=== PATIENT | female | born 1935 | race Caucasian/White ===

== ENCOUNTER 2022-08-11 17:27 | Inpatient (IN) ==
[2022-08-11] MEDS ORDERED: MoRPHine SULFATE 2 MG/ML CARP IV STA (17:46)
[2022-08-11] MEDS ORDERED: ONDANSETRON INJ 2 MG/ML 2 ML VIAL IV STA (18:07)
[2022-08-11 18:14] LABS: Basophils # (auto) 0.03 K/uL (0-0.2); Basophils % (auto) 0.4 %; Eosinophils # (auto) 0.01 K/uL (0-0.50); Eosinophils % (auto) 0.1 %; Hemoglobin 12.4 g/dl (12.0-16.0); Immature Granulocytes # (auto) 0.01 K/uL (0.00-0.02); Immature Granulocytes % (auto) 0.1 %; Lymphocytes # (auto) 1.85 K/uL (1.2-3.4); Lymphocytes % (auto) 22.9 %; Mean Corpuscular Hemoglobin 26.6 pg (25.0-34.0); Mean Corpuscular Hgb Conc 32.6 g/dL (32.0-36.0); Mean Corpuscular Volume 81.4 fL (80.0-100.0); Monocytes # (auto) 0.61 K/uL (0.24-0.82); Monocytes % (auto) 7.5 %; Neutrophils # (auto) 5.58 K/uL (1.4-6.5); Platelet Count 277 K/uL (130-400); RDW Coefficient of Variation 19.6 % (11.5-14.5); RDW Standard Deviation 57.8 fL (36.4-46.3); Red Blood Count 4.67 M/uL (3.93-5.22); White Blood Count 8.09 K/ul (4.8-10.8)
[2022-08-11 18:29] LABS: Partial Thromboplastin Ratio 1.1; Partial Thromboplastin Time 30.5 Seconds (21.0-31.0); Prothrombin Time 10.4 Seconds (9.0-12.0)
[2022-08-11 18:36] LABS: Albumin Globulin Ratio 1.1 (0.9-2); Albumin Level 3.6 gm/dl (3.4-5.0); BUN Creatinine Ratio 27.3 (10-20); Bilirubin,Total 0.3 mg/dl (0.2-1.0); Calcium 8.2 mg/dl (8.5-10.1); Creatinine Clr Calc Pharmacy 57.4 ml/min; Est GFR (African American) 96.4 ml/min; Est GFR (Non-African American) 83.2 ml/min; Globulin 3.2 gm/dl (2.5-4.0); Potassium 3.7 mmol/L (3.5-5.1); Total Protein 6.8 gm/dl (6.0-8.3)
--- NOTE | 2022-08-11 18:39 | XRay Report ---
LEFT TIBIA AND FIBULA 2 VIEWS CLINICAL HISTORY: Fall with left leg injury. FINDINGS: AP and lateral views of the left tibia and fibula are obtained. No prior studies are availa ble for comparison at the time of dictation. The skeletal structures are osteopenic. There is no radi ographic evidence of left tibial fibular fracture. Arthritic change is seen in the knee with a large knee joint effusion. The ankle mortise appears intact. An os trigonum is incidentally noted. The over lying soft tissues are normal as visualized. Atherosclerotic calcification is seen in the regional ar teries. IMPRESSION: 1. There is no radiographic evidence of left tibial or fibular fracture. 2. Large knee joint effusion. Electronically signed by: Jasvir Ruggiero M.D. 08/11/2022 6:38 PM
--- NOTE | 2022-08-11 18:39 | XRay Report ---
SINGLE VIEW PELVIS; 2 VIEWS RIGHT FEMUR CLINICAL HISTORY: Fall with right leg pain. FINDINGS: An AP view of the pelvis with AP and crosstable lateral views of the left femur are obtaine d. No prior studies are available for comparison at the time of dictation. The skeletal structures ar e heterogeneously osteopenic. There is an impacted subcapital fracture of the left proximal femur. Ov erlying soft tissue edema is noted. The distal left femur appears intact. No acute fracture is seen I nvolving the right hip or the bony pelvis. There is chronic deformity of the right proximal femur wit h 3 intertrochanteric cannulated cortical lag screws in place. Moderate to advanced arthritic change and joint space narrowing is seen in the hips. Sclerotic changes noted in the sacroiliac joints. Adva nced arthritic changes seen in the left knee. There is a large left knee joint effusion. Advanced ath erosclerotic calcification is seen in the femoral arteries. A pessary device projects over the pelvis . IMPRESSION: 1. Impacted subcapital fracture of the left proximal femur. 2. No additional acute fracture is seen involving the bony pelvis or the right hip. 3. Osteopenia with chronic changes as above. 4. 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 Electronically signed by: Jasvir Ruggiero M.D. 08/11/2022 6:37 PM
--- NOTE | 2022-08-11 18:55 | CT Scan Report ---
CT SCAN OF THE BRAIN WITHOUT IV CONTRAST CLINICAL HISTORY: Fall. Head injury. COMPARISON STUDY: No priors. TECHNIQUE: Unenhanced axial CT scan of the brain is performed from the vertex to the skull base. A do se lowering technique was utilized adhering to the principles of ALARA. 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 There is no hemorrhage, mass effect, or evidence of acute territorial ischemia by CT criteria. Mineralization is noted in the basal ganglia. [place]-white matter differentiation is preserved. No extra-axial fluid collection is seen. Ventricles, sulci, cisterns: Prominent secondary to involutional change. Intracranial vasculature: There is atherosclerotic calcification of the cavernous carotid and vertebr al arteries. Calvarium: The skeletal structures are osteopenic. No depressed calvarial fracture is seen. Sinuses and mastoids: There is trace fluid within the sphenoid sinuses. The remaining paranasal sinus es are clear. The mastoid air cells are well pneumatized. Orbits: The bony orbits are grossly intact. There are bilateral ocular lens implants. IMPRESSION: There is no hemorrhage, mass effect, or evidence of acute territorial ischemia by CT sofya ramirez. ACT 112: Negative or not required by law. Electronically signed by: Jasvir Ruggiero M.D. 08/11/2022 6:53 PM
--- NOTE | 2022-08-11 19:03 | CT Scan Report ---
CT SCAN OF THE CERVICAL SPINE CLINICAL HISTORY: Fall. Head injury. COMPARISON STUDY: No priors. TECHNIQUE: CT scan of the cervical spine is performed from the skull base to the upper thoracic spine . Images are reviewed in the axial, sagittal, and coronal planes. IV contrast was not administered fo r this examination. A dose lowering technique was utilized adhering to the principles of ALARA. Ther e FINDINGS: Skeletal structures: The skeletal structures are osteopenia. There is no evidence of fracture or subl uxation involving the cervical spine. Vertebral body height is maintained. There is minimal anteroli sthesis at C5-C6 and C7-T1. Alignment is otherwise preserved. Small anterior osteophytes are seen thr oughout. The odontoid process and lateral masses are intact. The atlantoaxial articulation is preserv ed noting productive degenerative change. The spinous processes appear intact. There are mild and age indeterminate superior endplate compression deformities of T2 and T3. Intervertebral discs: There is severe disc space narrowing at C6-C7 with bony fusion at this level. M oderate disc space narrowing is seen at C3-C4, C4-C5, C5-C6. Central canal: Posterior disc osteophyte complexes are seen also at all cervical levels between C3-C4 and C6-C7. This likely contributes to multilevel acquired compromise of the central canal. Soft tissues: The prevertebral and paraspinous soft tissues are within normal limits. There is athero sclerotic calcification of the carotid bulbs. The thyroid gland is enlarged and heterogeneous. Calvarium: The visualized calvarium at the skull base appears intact. Brain parenchyma: Partially visualized brain parenchyma at the skull base is within normal limits. Sinuses and mastoids: Trace fluid is noted in the sphenoid sinuses. Trace mucosal thickening is noted in the left maxillary antrum. The mastoid air cells are well pneumatized. Lung apices: Clear as visualized. IMPRESSION: 1. There is no evidence of fracture or subluxation involving the cervical spine. 2. Osteopenia and spondylotic changes above. 3. Mild age indeterminate superior endplate compression deformities of T2 and T3 are likely chronic. Correlate for point tenderness. ACT 112: Negative or not required by law. Electronically signed by: Jasvir Ruggiero M.D. 08/11/2022 7:00 PM
--- NOTE | 2022-08-11 19:08 | Emergency Department Note ---
History of Present Illness General Chief complaint: Fall Stated complaint: fall, knee pain Time Seen by Provider: 08/11/22 17:41 History of Present Illness Maximum Pain Intensity: 10 This is an 87-year-old female presenting to the emergency department via EMS from home for evaluation of left leg pain. The patient evidently got up around 2 AM today to use the bathroom, fell, and injured herself. She is primarily having pain in her left knee as well as the right side of her head. The patient rates her overall discomfort a 10/10. She is not having significant chest pain, chest tightness, shortness of breath, or abdominal pain. She has not been able to ambulate since the injury. She did have abrasion to the right side of the head but this is no longer bleeding. She is not on blood thinners. She does live with her daughter and son-in-law. Home Medications Medication Instructions Recorded Confirmed Type acetaminophen 500 mg tablet 1,000 mg PO DIRECTED PRN Pain 08/11/22 08/11/22 History (Tylenol Extra Strength) amlodipine 5 mg tablet 5 mg PO QAM 08/11/22 08/11/22 History levothyroxine 25 mcg tablet 25 mcg PO QAM 08/11/22 08/11/22 History linagliptin 5 mg tablet (Tradjenta) 5 mg PO QAM 08/11/22 08/11/22 History Allergies Allergy/AdvReac Type Severity Reaction Status Date / Time No Known Allergies Allergy Verified 08/11/22 19:26 Past Med/Surg History Medical History COVID-19 Diabetes Femur fracture, left Hyperlipidemia Hypertension Hypothyroidism Surgical History History of repair of right hip joint Family History Other Family history non-contributory Social History Smoking Status: Never smoker Hx Alcohol Use: Yes Alcohol type: hard liquor Hx Substance Use: No Preferred Language: Welsh Communication Ability: Effective Residential Property Manager Required: No Beliefs That Will Affect Care: None Current Living Situation: Family Current Living Situation Comment: Daughter and Daughter's Feels Safe at Home: Yes Safety Concerns: Feels Safe At This Time Assistive Devices: Glasses, Walker and Other Assistive Devices Comment: transport chair Review of Systems A total of 10 systems reviewed and were otherwise negative Physical Exam Vital Signs Vital Signs - 24 hr 08/11/22 17:36 08/11/22 18:28 Temperature 37.4 C Temperature Source Oral Pulse Rate 98 H Pulse Rate [Finger] 96 H Respiratory Rate 18 20 Blood Pressure 188/100 H Blood Pressure [Left Arm] 183/109 H Blood Pressure Mean 129 Blood Pressure Mean [Left Arm] 133 Pulse Oximetry 92 90 Oxygen Delivery Method Room Air Room Air Sepsis Recent Fever Within 48 Hours No Sepsis New/Unexplained Change in Mental Status No Sepsis Action Taken by Nursing No Action Required VITALS: Vitals are noted on the nurse's note and reviewed by myself. Vital signs stable. GENERAL: Elderly white female who appears uncomfortable with movement but is overall pleasant and cooperative. HEAD: There is a small right-sided scalp hematoma with superficial abrasion that is healing well. No nelson sign or raccoon eyes. NECK: Supple without nuchal rigidity. No lymphadenopathy. No thyromegaly. Cervical spine is nontender. HEART: Regular rate and rhythm LUNGS: Clear to auscultation bilaterally without wheezes, rales or rhonchi. No retractions or accessory muscle use. MUSCULOSKELETAL: Left leg is shortened and rotated. Maximum tenderness is primarily at the distal femur into the knee, however she is not able to internally and externally rotate at the hip. Neurovascular status appears intact distally. NEURO: Patient was alert and oriented to person place and time. CN II through XII grossly intact. GCS 15. Course Administered Medications Amlodipine Besylate (Amlodipine Besylate 5 Mg Tab) 5 mg PO QAM VÍCTOR Stop: 09/11/22 08:59 Last Admin: 08/12/22 08:51 Dose: 5 mg Documented By: MOI Dextrose/Sodium Chloride (D5w And 1/2nss) 1,000 mls @ 100 mls/hr IV .Q10H VÍCTOR Stop: 09/10/22 21:40 Last Admin: 08/12/22 08:50 Dose: 100 mls/hr Documented By: Infusion: 08/12/22 08:50 Dose: 0 mls/hr Documented By: Admin: 08/11/22 22:12 Dose: 100 mls/hr Documented By: Acetaminophen (Ofirmev) 1,000 mg in 100 mls @ 400 mls/hr IV Q8H PRN PRN Reason: Pain/Fever Stop: 08/14/22 21:40 Last Infusion: 08/12/22 09:28 Dose: 0 mls/hr Documented By: Admin: 08/12/22 08:51 Dose: 400 mls/hr Documented By: Infusion: 08/11/22 23:04 Dose: 0 mls/hr Documented By: Admin: 08/11/22 22:12 Dose: 400 mls/hr Documented By: Remdesivir 100 mg/ Sodium (Chloride) 250 mls @ 250 mls/hr IV Q24H [facility] Stop: 08/15/22 20:59 Last Admin: 08/12/22 20:53 Dose: 250 mls/hr Documented By: CATA Insulin Aspart (Insulin Aspart Per Unit) 0 units SC ACHS [facility] Stop: 09/11/22 17:44 Last Admin: 08/12/22 20:53 Dose: Not Given Documented By: Admin: 08/12/22 18:28 Dose: Not Given Documented By: MOI Levothyroxine Sodium (Levothyroxine Sodium 25 Mcg Tablet) 25 mcg PO DAILYBB [facility] Stop: 09/11/22 06:29 Last Admin: 08/12/22 09:29 Dose: 25 mcg Documented By: MOI Morphine Sulfate (Morphine Sulfate Ir 15 Mg Tab (Immediate Release)) 15 mg PO Q4H PRN PRN Reason: moderate-severe pain Stop: 08/25/22 21:40 Last Admin: 08/12/22 03:53 Dose: 15 mg Documented By: Ondansetron HCl (Ondansetron Inj 2 Mg/Ml 2 Ml Vial) 4 mg IV Q6H PRN PRN Reason: Nausea Stop: 09/10/22 21:40 Last Admin: 08/12/22 21:01 Dose: 4 mg Documented By: CATA Senna/Docusate Sodium (Docusate Sodium/Senna 50/8.6mg Tab) 2 tab PO HS [facility] Stop: 09/10/22 21:40 Last Admin: 08/12/22 20:53 Dose: 2 tab Documented By: Admin: 08/11/22 22:11 Dose: 2 tab Documented By: Discontinued Medications Remdesivir 200 mg/ Sodium (Chloride) 250 mls @ 125 mls/hr IV ONE STA; Protocol Stop: 08/11/22 23:15 Last Infusion: 08/12/22 00:34 Dose: 0 mls/hr Documented By: Admin: 08/11/22 22:12 Dose: 125 mls/hr Documented By: Potassium Chloride (K Stuart / Wtr) 10 meq in 100 mls @ 100 mls/hr IV Q1H VÍCTOR; Protocol Stop: 08/12/22 02:59 Last Infusion: 08/12/22 04:00 Dose: 0 mls/hr Documented By: Admin: 08/12/22 02:48 Dose: 100 mls/hr Documented By: Infusion: 08/12/22 02:27 Dose: 100 mls/hr Documented By: Admin: 08/12/22 01:27 Dose: 100 mls/hr Documented By: Magnesium Sulfate/Dextrose (Magnesium Sulfate / D5w) 1 gm in 100 mls @ 50 mls/hr IV ONE ONE Stop: 08/12/22 03:34 Last Infusion: 08/12/22 05:47 Dose: 0 mls/hr Documented By: Admin: 08/12/22 03:46 Dose: 50 mls/hr Documented By: Insulin Aspart (Insulin Aspart Per Unit) 0 units SC Q6 [facility]CTOR Stop: 09/11/22 00:00 Last Admin: 08/12/22 13:07 Dose: Not Given Documented By: Admin: 08/12/22 05:59 Dose: 1 units Documented By: Co-signed By: SHA Admin: 08/11/22 23:13 Dose: Not Given Documented By: Lidocaine HCl (Lidocaine 1% Local 20 Ml Vial) Confirm Administered Dose 20 ml .ROUTE .STK-MED ONE Stop: 08/12/22 09:05 Last Admin: 08/12/22 17:58 Dose: 20 ml Documented By: MOI Morphine Sulfate (Morphine Sulfate 2 Mg/Ml Carp) 2 mg IV NOW STA Stop: 08/11/22 17:47 Last Admin: 08/11/22 18:10 Dose: 2 mg Documented By: HAROON Morphine Sulfate (Morphine Sulfate Ir 15 Mg Tab (Immediate Release)) 15 mg PO NOW STA Stop: 08/11/22 20:43 Last Admin: 08/11/22 21:00 Dose: 15 mg Documented By: [id number] Morphine Sulfate (Morphine Sulfate 2 Mg/Ml Carp) 2 mg IV NOW STA Stop: 08/12/22 04:05 Last Admin: 08/12/22 04:16 Dose: 2 mg Documented By: Ondansetron HCl (Ondansetron Inj 2 Mg/Ml 2 Ml Vial) 4 mg IV NOW STA Stop: 08/11/22 18:08 Last Admin: 08/11/22 18:10 Dose: 4 mg Documented By: HAROON Medical Decision Making Differential Diagnosis Differential diagnosis includes, but is not limited to: Sprain, strain, fracture, dislocation, subluxation, contusion, and others Laboratory Data Result diagrams: 08/12/22 03:30 08/12/22 03:30 Lab Results 08/11/22 08/11/22 08/11/22 Range/Units 18:02 18:02 18:02 WBC 8.09 (4.8-10.8) K/ul RBC 4.67 (3.93-5.22) M/uL Hgb 12.4 (12.0-16.0) g/dl Hct 38.0 (34.1-44.9) % MCV 81.4 (80.0-100.0) fL MCH 26.6 (25.0-34.0) pg MCHC 32.6 (32.0-36.0) g/dL RDW Std Deviation 57.8 H (36.4-46.3) fL RDW Coeff of Rah 19.6 H (11.5-14.5) % Plt Count 277 (130-400) K/uL MPV 11.0 (9.4-12.3) fL Immature Gran % (Auto) 0.1 % Neut % (Auto) 69.0 % Lymph % (Auto) 22.9 % Trinity % (Auto) 7.5 % Eos % (Auto) 0.1 % Baso % (Auto) 0.4 % Neut # (Auto) 5.58 (1.4-6.5) K/uL Lymph # (Auto) 1.85 (1.2-3.4) K/uL Trinity # (Auto) 0.61 (0.24-0.82) K/uL Eos # (Auto) 0.01 (0-0.50) K/uL Baso # (Auto) 0.03 (0-0.2) K/uL Immature Gran # (Auto) 0.01 (0.00-0.02) K/uL PT 10.4 (9.0-12.0) Seconds INR 1.0 (0.9-1.1) APTT 30.5 (21.0-31.0) Seconds PTT Ratio 1.1 Sodium 136 (136-145) mmol/L Potassium 3.7 (3.5-5.1) mmol/L Chloride 104 (98-107) mmol/L Carbon Dioxide 24 (21-32) mmol/L Anion Gap 8 (3-11) BUN 15 (6-23) mg/dl Creatinine 0.55 L (0.6-1.2) mg/dl Est Cr Clr Drug Dosing 57.4 ml/min Est GFR ( Amer) 96.4 ml/min Est GFR (Non-Af Amer) 83.2 ml/min BUN/Creatinine Ratio 27.3 H (10-20) Glucose 83 (70-99(Fasting)) mg/dl Calcium 8.2 L (8.5-10.1) mg/dl Magnesium (1.7-2.4) mg/dl Total Bilirubin 0.3 (0.2-1.0) mg/dl AST 32 (13-39) U/L ALT 14 (7-52) U/L Alkaline Phosphatase 71 (34-104) U/L Total Protein 6.8 (6.0-8.3) gm/dl Albumin 3.6 (3.4-5.0) gm/dl Globulin 3.2 (2.5-4.0) gm/dl Albumin/Globulin Ratio 1.1 (0.9-2) SARS-CoV-2, RNA, NAAT (NEGATIVE) 08/11/22 08/11/22 Range/Units 18:02 19:02 WBC (4.8-10.8) K/ul RBC (3.93-5.22) M/uL Hgb (12.0-16.0) g/dl Hct (34.1-44.9) % MCV (80.0-100.0) fL MCH (25.0-34.0) pg MCHC (32.0-36.0) g/dL RDW Std Deviation (36.4-46.3) fL RDW Coeff of Rah (11.5-14.5) % Plt Count (130-400) K/uL MPV (9.4-12.3) fL Immature Gran % (Auto) % Neut % (Auto) % Lymph % (Auto) % Trinity % (Auto) % Eos % (Auto) % Baso % (Auto) % Neut # (Auto) (1.4-6.5) K/uL Lymph # (Auto) (1.2-3.4) K/uL Trinity # (Auto) (0.24-0.82) K/uL Eos # (Auto) (0-0.50) K/uL Baso # (Auto) (0-0.2) K/uL Immature Gran # (Auto) (0.00-0.02) K/uL PT (9.0-12.0) Seconds INR (0.9-1.1) APTT (21.0-31.0) Seconds PTT Ratio Sodium (136-145) mmol/L Potassium (3.5-5.1) mmol/L Chloride (98-107) mmol/L Carbon Dioxide (21-32) mmol/L Anion Gap (3-11) BUN (6-23) mg/dl Creatinine (0.6-1.2) mg/dl Est Cr Clr Drug Dosing ml/min Est GFR ( Amer) ml/min Est GFR (Non-Af Amer) ml/min BUN/Creatinine Ratio (10-20) Glucose (70-99(Fasting)) mg/dl Calcium (8.5-10.1) mg/dl Magnesium 1.9 (1.7-2.4) mg/dl Total Bilirubin (0.2-1.0) mg/dl AST (13-39) U/L ALT (7-52) U/L Alkaline Phosphatase (34-104) U/L Total Protein (6.0-8.3) gm/dl Albumin (3.4-5.0) gm/dl Globulin (2.5-4.0) gm/dl Albumin/Globulin Ratio (0.9-2) SARS-CoV-2, RNA, NAAT POSITIVE A* (NEGATIVE) Imaging Data Radiologist's Impression: Femur X-Ray 08/11/22 17:46 SINGLE VIEW PELVIS; 2 VIEWS RIGHT FEMUR CLINICAL HISTORY: Fall with right leg pain. FINDINGS: An AP view of the pelvis with AP and crosstable lateral views of the left femur are obtained. No prior studies are available for comparison at the time of dictation. The skeletal structures are heterogeneously osteopenic. There is an impacted subcapital fracture of the left proximal femur. Overlying soft tissue edema is noted. The distal left femur appears intact. No acute fracture is seen Involving the right hip or the bony pelvis. There is chronic deformity of the right proximal femur with 3 intertrochanteric cannulated cortical lag screws in place. Moderate to advanced arthritic change and joint space narrowing is seen in the hips. Sclerotic changes noted in the sacroiliac joints. Advanced arthritic changes seen in the left knee. There is a large left knee joint effusion. Advanced atherosclerotic calcification is seen in the femoral arteries. A pessary device projects over the pelvis. IMPRESSION: 1. Impacted subcapital fracture of the left proximal femur. 2. No additional acute fracture is seen involving the bony pelvis or the right hip. 3. Osteopenia with chronic changes as above. 4. 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 Electronically signed by: Jasvir Ruggiero M.D. 08/11/2022 6:37 PM Pelvis X-Ray 08/11/22 17:46 SINGLE VIEW PELVIS; 2 VIEWS RIGHT FEMUR CLINICAL HISTORY: Fall with right leg pain. FINDINGS: An AP view of the pelvis with AP and crosstable lateral views of the left femur are obtained. No prior studies are available for comparison at the time of dictation. The skeletal structures are heterogeneously osteopenic. There is an impacted subcapital fracture of the left proximal femur. Overlying soft tissue edema is noted. The distal left femur appears intact. No acute fracture is seen Involving the right hip or the bony pelvis. There is chronic deformity of the right proximal femur with 3 intertrochanteric cannulated cortical lag screws in place. Moderate to advanced arthritic change and joint space narrowing is seen in the hips. Sclerotic changes noted in the sacroiliac joints. Advanced arthritic changes seen in the left knee. There is a large left knee joint effusion. Advanced atherosclerotic calcification is seen in the femoral arteries. A pessary device projects over the pelvis. IMPRESSION: 1. Impacted subcapital fracture of the left proximal femur. 2. No additional acute fracture is seen involving the bony pelvis or the right hip. 3. Osteopenia with chronic changes as above. 4. 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 Electronically signed by: Jasvir Ruggiero M.D. 08/11/2022 6:37 PM Tibia/Fibula X-Ray 08/11/22 17:46 LEFT TIBIA AND FIBULA 2 VIEWS CLINICAL HISTORY: Fall with left leg injury. FINDINGS: AP and lateral views of the left tibia and fibula are obtained. No prior studies are available for comparison at the time of dictation. The skeletal structures are osteopenic. There is no radiographic evidence of left tibial fibular fracture. Arthritic change is seen in the knee with a large knee joint effusion. The ankle mortise appears intact. An os trigonum is incidentally noted. The overlying soft tissues are normal as visualized. Atherosclerotic calcification is seen in the regional arteries. IMPRESSION: 1. There is no radiographic evidence of left tibial or fibular fracture. 2. Large knee joint effusion. Electronically signed by: Jasvir Ruggiero M.D. 08/11/2022 6:[address] 08/11/22 18:15 CT SCAN OF THE CERVICAL SPINE CLINICAL HISTORY: Fall. Head injury. COMPARISON STUDY: No priors. TECHNIQUE: CT scan of the cervical spine is performed from the skull base to the upper thoracic spine. Images are reviewed in the axial, sagittal, and coronal planes. IV contrast was not administered for this examination. A dose lowering technique was utilized adhering to the principles of ALARA. There FINDINGS: Skeletal structures: The skeletal structures are osteopenia. There is no evidence of fracture or subluxation involving the cervical spine. Vertebral body height is maintained. There is minimal anterolisthesis at C5-C6 and C7-T1. Alignment is otherwise preserved. Small anterior osteophytes are seen throughout. The odontoid process and lateral masses are intact. The atlantoaxial articulation is preserved noting productive degenerative change. The spinous processes appear intact. There are mild and age indeterminate superior endplate compression deformities of T2 and T3. Intervertebral discs: There is severe disc space narrowing at C6-C7 with bony fusion at this level. Moderate disc space narrowing is seen at C3-C4, C4-C5, C5- C6. Central canal: Posterior disc osteophyte complexes are seen also at all cervical levels between C3-C4 and C6-C7. This likely contributes to multilevel acquired compromise of the central canal. Soft tissues: The prevertebral and paraspinous soft tissues are within normal limits. There is atherosclerotic calcification of the carotid bulbs. The thyroid gland is enlarged and heterogeneous. Calvarium: The visualized calvarium at the skull base appears intact. Brain parenchyma: Partially visualized brain parenchyma at the skull base is within normal limits. Sinuses and mastoids: Trace fluid is noted in the sphenoid sinuses. Trace mucosal thickening is noted in the left maxillary antrum. The mastoid air cells are well pneumatized. Lung apices: Clear as visualized. IMPRESSION: 1. There is no evidence of fracture or subluxation involving the cervical spine. 2. Osteopenia and spondylotic changes above. 3. Mild age indeterminate superior endplate compression deformities of T2 and T3 are likely chronic. Correlate for point tenderness. ACT 112: Negative or not required by law. Electronically signed by: Jasvir Ruggiero M.D. 08/11/2022 7:[address] 08/11/22 18:15 CT SCAN OF THE BRAIN WITHOUT IV CONTRAST CLINICAL HISTORY: Fall. Head injury. COMPARISON STUDY: No priors. TECHNIQUE: Unenhanced axial CT scan of the brain is performed from the vertex to the skull base. A dose lowering technique was utilized adhering to the princ iples of NIMA. CT DOSE: 971.97 mGy.cm FINDINGS: Brain parenchyma: There is age-related involutional change noting moderate to advanced subcortical and periventricular microangiopathic disease. There is no hemorrhage, mass effect, or evidence of acute territorial ischemia by CT criteria. Mineralization is noted in the basal ganglia. [place]-white matter differentiation is preserved. No extra-axial fluid collection is seen. Ventricles, sulci, cisterns: Prominent secondary to involutional change. Intracranial vasculature: There is atherosclerotic calcification of the cavernous carotid and vertebral arteries. Calvarium: The skeletal structures are osteopenic. No depressed calvarial fracture is seen. Sinuses and mastoids: There is trace fluid within the sphenoid sinuses. The remaining paranasal sinuses are clear. The mastoid air cells are well pneumatized. Orbits: The bony orbits are grossly intact. There are bilateral ocular lens implants. IMPRESSION: There is no hemorrhage, mass effect, or evidence of acute territorial ischemia by CT criteria. ACT 112: Negative or not required by law. Electronically signed by: Jasvir Ruggiero M.D. 08/11/2022 6:[address] 08/11/22 18:34 CT SCAN OF THE PELVIS WITHOUT IV CONTRAST CLINICAL HISTORY: Fall. Left hip pain. COMPARISON STUDY: Radiographs of the pelvis and left femur performed the same day 08/11/2022. TECHNIQUE: CT scan of the pelvis is performed from the pelvic inlet to the proximal femora. Images reviewed in the axial, sagittal, and coronal planes. IV contrast was not administered for this examination. A dose lowering technique was utilized adhering to the principles of ALARA. CT DOSE: 306.43 mGy.cm FINDINGS: The skeletal structures are heterogeneously osteopenic. There is impacted subcapital fracture of the left proximal femur with mild surrounding hemorrhage. No additional acute fracture is seen involving the right proximal femur or the bony pelvis. There is chronic posttraumatic deformity of the right proximal femur with 3 cannulated intertrochanteric cortical lag screws in place. No lytic or blastic lesion is seen. Moderate to advanced arthritic change and joint space narrowing is noted in the hips. There is degenerative sclerosis of the sacroiliac joints. There is generalized atrophy of the regional musculature. The bladder, uterus, and adnexa are normal as visualized. A pessary device is in place. No pelvic sidewall or inguinal adenopathy is seen. Advanced atherosclerotic calcification is noted in the iliac vessels. The imaged loops of bowel show no evidence of obstruction. There is advanced diverticulosis of the left colon without CT evidence of acute diverticulitis. No intraperitoneal free air or free fluid is seen in the pelvis. IMPRESSION: 1. Impacted subcapital fracture of the left proximal femur. 2. No additional acute fracture is seen involving the right hip or the bony pelvis. ACT 112: Negative or not required by law. Dictated: 08/11/2022 7:00 PM Transcribed: 08/11/2022 7:51 PM [facility] [id number] [email or web address] Electronically signed by: Jasvir Ruggiero M.D. 08/11/2022 8:16 PM [facility] Narrative Physical exam and history were performed. Nursing notes, EMR, and Medication List were personally reviewed. Patient appears to have fallen at home earlier today with pain in her left lower leg. Patient is not able to ambulate because of her symptoms. IV access was established and labs were obtained. X-rays were performed. Patient's blood work is as above and was reviewed. She does not have a significantly elevated blood cell count, gross anemia, bandemia, or significant electrolyte imbalance. Transaminases are not diagnostic. COVID swab was performed and POSITIVE. X-rays are concerning for fracture of the left hip. CT scans of the head, neck, and hip were performed, and are also concerning for fracture at the left hip. I did reach out to the on-call orthopedist, Dr. Siu, who was able to review the images. The case was also discussed with the on-call hospitalist who will admit the patient. Please see the hospitalist and orthopedic dictation for further patient course, plan, disposition. The chart was completed utilizing [employer] Speech Voice Recognition Software. Grammatical errors, random word insertions, pronoun errors, and incomplete sentences are an occasional consequence of this system due to software limitations, ambient noise, and hardware issues. Any formal questions or concerns about the content, text, or information contained within the body of this dictation should be directly addressed to the provider for clarification. . Impression & Plan Femur fracture, left, Fall, COVID-19 Discharge Plan Visit Data Chief Complaint: Fall Stated Complaint: fall, knee pain ED Provider: Skyler Westbrook ED Midlevel Provider: Ruslan Babcock Discharge Problem: Femur fracture, left, Fall, COVID-19 Patient Disposition: Admitted As Inpatient Discharge Instructions Interventions: ED Discharge Assessment Last Done: 08/11/22 21:27
--- NOTE | 2022-08-11 19:18 | History & Physical Report ---
Date of Service August 11, 2022 Assessment & Plan (1) Femur fracture, left: Plan: - Femur XR: Impacted subcapital fracture of the left proximal femur. Large left knee joint effusion. No other fractures. Right scalp laceration. - Bedrest. - NPO at midnight. - CXR and EKG for pre-op clearance ordered. - Type and screen ordered. - Ortho surgery consulted. - Tylenol, morphine, heating pad ordered for pain control. Cautious keerthi of opiates given concern for respiratory status with concomitant covid infection. (2) COVID-19: Plan: - Patient reports feeling "ill" for a couple days with no energy, lack of appetite, fever at home. Daughter states she has been eating well, had an issue with constipation this week but took a laxative and has otherwise been doing okay. Does not recall patient having a fever or complaining of illness. - Positive today in ED, not vaccinated, not really able to quantify when symptoms began. - Patient was mildly hypoxic prior to pain medication at 90-92%. No underlying COPD however lung disease. She is not tachypneic or dyspneic, not using accessory muscles. Will consult with ortho regarding remdesivir and dexamethasone. Hesitate to start on IV steroids due to risk of impaired healing. Renal function adequate for remdesivir. - Supportive care. Isolation precautions. - On 2 L NC. (3) Diabetes: Plan: - On Tradjenta at home, will hold during hospitalization. - Accu-Cheks AC at bedtime/Q6h as well n.p.o., SSI only without basal insulin. - Patient presented with a glucose of 83, ? whether this contributed to fall, likely low due to decreased p.o. intake in setting of COVID-19 illness. (4) Hypertension: Plan: - Continue amlodipine 5 mg daily. - Required hypertensive in the ED, likely secondary to pain. Will order hydralazine as needed every 8 hours overnight for elevated SBP >185 in the setting of controlled pain. (5) Hypothyroidism: Plan: - Continue levothyroxine 25 mcg daily. Plan - Admit to med telemetry. - SCDs ordered for VTE ppx. Opt for Heparin over Lovenox for VTE PPx due to impending surgery. - DNR/DNI. History of Present Illness Chief Complaint: Left hip pain x1 day Primary Care Provider: NO PCP Jazzy Maloney is an 87-year-old female with past medical history significant for hypertension, hyperlipidemia, diabetes, hypothyroidism, and urinary incontinence who is presenting today from home after a fall. Patient was up ambulating around 5 AM this morning when she states her legs got weak and gave out from under her causing her to fall landing on her side and head. She lives with her daughter, who with the assistance of her was able to get the patient back in bed and cleaned off her scalp which was bleeding from where she had it. She denies loss of consciousness, denies any chest pain, palpitations, shortness of breath preceding the fall. She not exactly able to explain how the fall happened but just says she felt weak. Since the fall she has not been able to ambulate and has significant pain at her left hip and knee, as well as the right side of her head. EMS was called to her home so that she may be transported to the ED for further evaluation pain control. Patient also complains of feeling generally "unwell" for couple days stating she has been tired and not wanting to eat much and believes her daughter took her temperature at home and told her she had a fever. I also spoke to daughter, Netta, on the phone this evening who states that her mother had been eating well and no complaints of feeling sick this week. She did have 1 episode of constipation which was alleviated with a laxative. No one else is sick at home. Left femur x-ray reveals an impacted subcapital fracture left proximal femur and a large joint effusion of the left knee as well as advanced arthritic changes. There is no fracture seen in the left pelvis, hip, tibia or fibula. C-spine negative for fracture or subluxation. There is mild age-indeterminate superior endplate compression deformities at T2 and T3, likely chronic. Head CT negative for hemorrhage, mass-effect, or acute ischemia. On presentation, patient is hypertensive with BP 180s over 100, HR 90s, oxygen 90 to 92% on room air. Did desat down to high 80s after receiving morphine and therefore was placed on 2 L NC. She is afebrile. Labs largely unremarkable. On routine admission testing, patient was positive for COVID-19. Allergies Allergy/AdvReac Type Severity Reaction Status Date / Time No Known Allergies Allergy Verified 08/11/22 19:26 Home Medications Medication Instructions Recorded Confirmed Type acetaminophen 500 mg tablet 1,000 mg PO DIRECTED PRN Pain 08/11/22 08/11/22 History (Tylenol Extra Strength) amlodipine 5 mg tablet 5 mg PO QAM 08/11/22 08/11/22 History levothyroxine 25 mcg tablet 25 mcg PO QAM 08/11/22 08/11/22 History linagliptin 5 mg tablet (Tradjenta) 5 mg PO QAM 08/11/22 08/11/22 History Past Med/Surg History Medical History COVID-19 Diabetes Femur fracture, left Hyperlipidemia Hypertension Hypothyroidism Surgical History History of repair of right hip joint Family History Other Family history non-contributory Social History Smoking Status: Never smoker Hx Alcohol Use: Yes Alcohol type: hard liquor Hx Substance Use: No Preferred Language: Yakut Communication Ability: Effective Statistical Technician Required: No Beliefs That Will Affect Care: None Current Living Situation: Family Current Living Situation Comment: Daughter and Daughter's Feels Safe at Home: Yes Safety Concerns: Feels Safe At This Time Assistive Devices: Glasses, Walker and Other Assistive Devices Comment: transport chair Review of Systems Review of Systems: Constitutional: Reports fatigue, weakness, fever this week; no myalgias, anorexia, night sweats Eyes: No diplopia, no worsening or blurred vision ENT: normal hearing, no trouble swallowing Respiratory: No cough, sputum, dyspnea at rest or on exertion Cardiovascular: No chest pain, tightness or palpitations Abdomen: No pain, nausea, vomiting, diarrhea or constipation : Denies dysuria, hematuria, increased urgency/frequency, urinary retention Musculoskeletal: Complaining of right hand pain, left hip and knee pain; no other joint pain, no calf pain or Swelling Neurologic: No weakness, numbness/tingling, or balance problems Psychiatric: No anxiety or depression Skin: No rash or itch Physical Exam Physical Exam: Physical exam: General: awake, alert, no apparent distress, on 3 L NC Head: Normocephalic, atraumatic ENT: PERRL, EOMI, no pharyngeal exudate, mucous membranes moist Chest: Clear to auscultation, on room air, no adventitious breath sounds Cardiac: Regular rate and rhythm, no murmur, no JVD, normal peripheral pulses, good capillary refill Abdominal: NABS x 4 quadrants, soft, nontender to palpation, no rebound, guarding or tenderness Extremities: TTP at left hip, left knee with swelling of the left knee, all pulses intact, skin warm Psych: Normal mood and affect Neuro: AAO x 3, strength intact bilaterally and rated 5/5, no motor deficits, speech is clear, no peripheral sensory deficits Skin: no rash or erythema Results & Data Results & Data ([facility]) Vital Signs (Past 12 Hours) Vital Signs Temp Pulse Pulse Resp BP BP Pulse Ox 08/11/22 18:28 96 H 20 183/109 H 90 08/11/22 17:36 37.4 C 98 H 18 188/100 H 92 O2 Del Method 08/11/22 18:28 Room Air 08/11/22 17:36 Room Air Laboratory Results Abnormal lab results 08/11/22 08/11/22 08/11/22 Range/Units 18:02 18:02 19:02 RDW Std Deviation 57.8 H (36.4-46.3) fL RDW Coeff of Rah 19.6 H (11.5-14.5) % Creatinine 0.55 L (0.6-1.2) mg/dl BUN/Creatinine Ratio 27.3 H (10-20) Calcium 8.2 L (8.5-10.1) mg/dl SARS-CoV-2, RNA, NAAT POSITIVE A* (NEGATIVE) Diagnostic Findings Femur X-Ray 08/11/22 17:46 SINGLE VIEW PELVIS; 2 VIEWS RIGHT FEMUR CLINICAL HISTORY: Fall with right leg pain. FINDINGS: An AP view of the pelvis with AP and crosstable lateral views of the left femur are obtained. No prior studies are available for comparison at the time of dictation. The skeletal structures are heterogeneously osteopenic. There is an impacted subcapital fracture of the left proximal femur. Overlying soft tissue edema is noted. The distal left femur appears intact. No acute fracture is seen Involving the right hip or the bony pelvis. There is chronic deformity of the right proximal femur with 3 intertrochanteric cannulated cortical lag screws in place. Moderate to advanced arthritic change and joint space narrowing is seen in the hips. Sclerotic changes noted in the sacroiliac joints. Advanced arthritic changes seen in the left knee. There is a large left knee joint effu renee. Advanced atherosclerotic calcification is seen in the femoral arteries. A pessary device projects over the pelvis. IMPRESSION: 1. Impacted subcapital fracture of the left proximal femur. 2. No additional acute fracture is seen involving the bony pelvis or the right hip. 3. Osteopenia with chronic changes as above. 4. 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 Electronically signed by: Jasvir Ruggiero M.D. 08/11/2022 6:37 PM Pelvis X-Ray 08/11/22 17:46 SINGLE VIEW PELVIS; 2 VIEWS RIGHT FEMUR CLINICAL HISTORY: Fall with right leg pain. FINDINGS: An AP view of the pelvis with AP and crosstable lateral views of the left femur are obtained. No prior studies are available for comparison at the time of dictation. The skeletal structures are heterogeneously osteopenic. There is an impacted subcapital fracture of the left proximal femur. Overlying soft tissue edema is noted. The distal left femur appears intact. No acute fracture is seen Involving the right hip or the bony pelvis. There is chronic deformity of the right proximal femur with 3 intertrochanteric cannulated cortical lag screws in place. Moderate to advanced arthritic change and joint space narrowing is seen in the hips. Sclerotic changes noted in the sacroiliac joints. Advanced arthritic changes seen in the left knee. There is a large left knee joint effusion. Advanced atherosclerotic calcification is seen in the femoral arteries. A pessary device projects over the pelvis. IMPRESSION: 1. Impacted subcapital fracture of the left proximal femur. 2. No additional acute fracture is seen involving the bony pelvis or the right hip. 3. Osteopenia with chronic changes as above. 4. 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 Electronically signed by: Jasvir Ruggiero M.D. 08/11/2022 6:37 PM Tibia/Fibula X-Ray 08/11/22 17:46 LEFT TIBIA AND FIBULA 2 VIEWS CLINICAL HISTORY: Fall with left leg injury. FINDINGS: AP and lateral views of the left tibia and fibula are obtained. No prior studies are available for comparison at the time of dictation. The skeletal structures are osteopenic. There is no radiographic evidence of left tibial fibular fracture. Arthritic change is seen in the knee with a large knee joint effusion. The ankle mortise appears intact. An os trigonum is incidentally noted. The overlying soft tissues are normal as visualized. Atherosclerotic calcification is seen in the regional arteries. IMPRESSION: 1. There is no radiographic evidence of left tibial or fibular fracture. 2. Large knee joint effusion. Electronically signed by: Jasvir Ruggiero M.D. 08/11/2022 6:[address] 08/11/22 18:15 CT SCAN OF THE CERVICAL SPINE CLINICAL HISTORY: Fall. Head injury. COMPARISON STUDY: No priors. TECHNIQUE: CT scan of the cervical spine is performed from the skull base to the upper thoracic spine. Images are reviewed in the axial, sagittal, and coronal planes. IV contrast was not administered for this examination. A dose lowering technique was utilized adhering to the principles of ALARA. There FINDINGS: Skeletal structures: The skeletal structures are osteopenia. There is no evidence of fracture or subluxation involving the cervical spine. Vertebral body height is maintained. There is minimal anterolisthesis at C5-C6 and C7-T1. Alignment is otherwise preserved. Small anterior osteophytes are seen throughout. The odontoid process and lateral masses are intact. The atlantoaxial articulation is preserved noting productive degenerative change. The spinous processes appear intact. There are mild and age indeterminate superior endplate compression deformities of T2 and T3. Intervertebral discs: There is severe disc space narrowing at C6-C7 with bony fusion at this level. Moderate disc space narrowing is seen at C3-C4, C4-C5, C5- C6. Central canal: Posterior disc osteophyte complexes are seen also at all cervical levels between C3-C4 and C6-C7. This likely contributes to multilevel acquired compromise of the central canal. Soft tissues: The prevertebral and paraspinous soft tissues are within normal limits. There is atherosclerotic calcification of the carotid bulbs. The thyroid gland is enlarged and heterogeneous. Calvarium: The visualized calvarium at the skull base appears intact. Brain parenchyma: Partially visualized brain parenchyma at the skull base is within normal limits. Sinuses and mastoids: Trace fluid is noted in the sphenoid sinuses. Trace mucosal thickening is noted in the left maxillary antrum. The mastoid air cells are well pneumatized. Lung apices: Clear as visualized. IMPRESSION: 1. There is no evidence of fracture or subluxation involving the cervical spine. 2. Osteopenia and spondylotic changes above. 3. Mild age indeterminate superior endplate compression deformities of T2 and T3 are likely chronic. Correlate for point tenderness. ACT 112: Negative or not required by law. Electronically signed by: Jasvir Ruggiero M.D. 08/11/2022 7:[address] 08/11/22 18:15 CT SCAN OF THE BRAIN WITHOUT IV CONTRAST CLINICAL HISTORY: Fall. Head injury. COMPARISON STUDY: No priors. TECHNIQUE: Unenhanced axial CT scan of the brain is performed from the vertex to the skull base. A dose lowering technique was utilized adhering to the principles of ALARA. CT DOSE: 971.97 mGy.cm FINDINGS: Brain parenchyma: There is age-related involutional change noting moderate to advanced subcortical and periventricular microangiopathic disease. There is no hemorrhage, mass effect, or evidence of acute territorial ischemia by CT criteria. Mineralization is noted in the basal ganglia. [place]-white matter differentiation is preserved. No extra-axial fluid collection is seen. Ventricles, sulci, cisterns: Prominent secondary to involutional change. Intracranial vasculature: There is atherosclerotic calcification of the cavernous carotid and vertebral arteries. Calvarium: The skeletal structures are osteopenic. No depressed calvarial fracture is seen. Sinuses and mastoids: There is trace fluid within the sphenoid sinuses. The remaining paranasal sinuses are clear. The mastoid air cells are well pneumatized. Orbits: The bony orbits are grossly intact. There are bilateral ocular lens implants. IMPRESSION: There is no hemorrhage, mass effect, or evidence of acute territorial ischemia by CT criteria. ACT 112: Negative or not required by law. Electronically signed by: Jasvir Ruggiero M.D. 08/11/2022 6:[address] 08/11/22 18:34 CT SCAN OF THE PELVIS WITHOUT IV CONTRAST CLINICAL HISTORY: Fall. Left hip pain. COMPARISON STUDY: Radiographs of the pelvis and left femur performed the same day 08/11/2022. TECHNIQUE: CT scan of the pelvis is performed from the pelvic inlet to the proximal femora. Images reviewed in the axial, sagittal, and coronal planes. IV contrast was not administered for this examination. A dose lowering technique was utilized adhering to the principles of ALARA. CT DOSE: 306.43 mGy.cm FINDINGS: The skeletal structures are heterogeneously osteopenic. There is impacted subcapital fracture of the left proximal femur with mild surrounding hemorrhage. No additional acute fracture is seen involving the right proximal femur or the bony pelvis. There is chronic posttraumatic deformity of the right proximal femur with 3 cannulated intertrochanteric cortical lag screws in place. No lytic or blastic lesion is seen. Moderate to advanced arthritic change and joint space narrowing is noted in the hips. There is degenerative sclerosis of the sacroiliac joints. There is generalized atrophy of the regional musculature. The bladder, uterus, and adnexa are normal as visualized. A pessary device is in place. No pelvic sidewall or inguinal adenopathy is seen. Advanced atherosclerotic calcification is noted in the iliac vessels. The imaged loops of bowel show no evidence of obstruction. There is advanced diverticulosis of the left colon without CT evidence of acute diverticulitis. No intraperitoneal free air or free fluid is seen in the pelvis. IMPRESSION: 1. Impacted subcapital fracture of the left proximal femur. 2. No additional acute fracture is seen involving the right hip or the bony pelvis. ACT 112: Negative or not required by law. Dictated: 08/11/2022 7:00 PM Transcribed: 08/11/2022 7:51 PM [facility] [id number] [facility] Electronically signed by: Jasvir Ruggiero M.D. 08/11/2022 8:16 PM Code Status & VTE Plan Code Status DNR/DNI. Supervising Physician Co-Signing Physician Notes Attending addendum: I have physically seen this patient, have supervised the MIKE's activities, and agree with the H&P unless as otherwise noted. Assessment and Plan: Left femur impacted subcapital fracture- NPO Bedrest Acetaminophen 650 mg p.o. every 6 hours. Mild pain or fever Morphine sulfate 2 mg IV every 4 hours as needed moderate pain Morphine sulfate 4 mg IV every 4 hours as needed for severe pain Orthopedic surgery consult COVID-19 infection- Pulse ox 90-92% on room air while in the ED Remdesivir IV per protocol Hold dexamethasone due to potential effect on healing of hip fracture Diabetes mellitus hold Tradjenta Placed on Accu-Cheks before meals and at bedtime with NovoLog coverage per scale Hypertension- Continue amlodipine 5 mg daily with hold parameters Hydralazine 10 mg IV every 6 hours as needed systolic blood pressure greater than 185 Remaining orders and notations as noted PG Care Time/CCT Total # of Minutes Spent Total Time Spent with Patient: Total time spent is greater than 50% in coordination of care (as documented) at patient's floor/unit and/or counseling patient: Coding Level of Care Code 25870 Initial Inpt Care Lvl 3 Diagnoses Femur fracture, left S72.92XA COVID-19 U07.1 Diabetes E11.9 Hypertension I10 Hypothyroidism E03.9
--- NOTE | 2022-08-11 20:18 | CT Scan Report ---
CT SCAN OF THE PELVIS WITHOUT IV CONTRAST CLINICAL HISTORY: Fall. Left hip pain. COMPARISON STUDY: Radiographs of the pelvis and left femur performed the same day 08/11/2022. TECHNIQUE: CT scan of the pelvis is performed from the pelvic inlet to the proximal femora. Images re viewed in the axial, sagittal, and coronal planes. IV contrast was not administered for this examinat ion. A dose lowering technique was utilized adhering to the principles of ALARA. CT DOSE: 306.43 mGy.cm FINDINGS: The skeletal structures are heterogeneously osteopenic. There is impacted subcapital fractu re of the left proximal femur with mild surrounding hemorrhage. No additional acute fracture is seen involving the right proximal femur or the bony pelvis. There is chronic posttraumatic deformity of th e right proximal femur with 3 cannulated intertrochanteric cortical lag screws in place. No lytic or blastic lesion is seen. Moderate to advanced arthritic change and joint space narrowing is noted in t he hips. There is degenerative sclerosis of the sacroiliac joints. There is generalized atrophy of th e regional musculature. The bladder, uterus, and adnexa are normal as visualized. A pessary device is in place. No pelvic sidewall or inguinal adenopathy is seen. Advanced atherosclerotic calcification is noted in the iliac vessels. The imaged loops of bowel show no evidence of obstruction. There is ad vanced diverticulosis of the left colon without CT evidence of acute diverticulitis. No intraperitone al free air or free fluid is seen in the pelvis. IMPRESSION: 1. Impacted subcapital fracture of the left proximal femur. 2. No additional acute fracture is seen involving the right hip or the bony pelvis. ACT 112: Negative or not required by law. Dictated: 08/11/2022 7:00 PM Transcribed: 08/11/2022 7:51 PM [facility] [id number] [facility] Electronically signed by: Jasvir Ruggiero M.D. 08/11/2022 8:16 PM
[2022-08-11] MEDS ORDERED: MoRPHine SULFATE IR 15 MG TAB (IMMEDIATE RELEASE) PO STA (20:42)
[2022-08-11] MEDS ORDERED: REMDESIVIR 200 MG in SODIUM CHLORIDE 0.9% 210 ML IV STA (21:16)
[2022-08-11] MEDS ORDERED: GLUCOSE 10 TAB/TUBE PO PRN (21:41)
[2022-08-11] MEDS ORDERED: CARBOHYDRATES FOR HYPOGLYCEMIA PO PRN (21:41)
[2022-08-11] MEDS ORDERED: ACETAMINOPHEN 500 MG TAB PO PRN (21:41)
[2022-08-11] MEDS ORDERED: ALUMINUM/MAGNESIUM SUSP 30 ML UDC PO PRN (21:41)
[2022-08-11] MEDS ORDERED: DEXTROSE 50% 50 ML SYRINGE IV PRN (21:41)
[2022-08-11] MEDS ORDERED: METOPROLOL TARTRATE 1 MG/ML VIAL IV PRN (21:41)
[2022-08-11] MEDS ORDERED: bisacodyL 10 MG SUPP PR PRN (21:41)
[2022-08-11] MEDS ORDERED: guaiFENesin 600 MG TABCR PO PRN (21:41)
[2022-08-11] MEDS ORDERED: hydrALAZINE HCL 20 MG/ML VIAL IV PRN (21:41)
[2022-08-11] MEDS ORDERED: NALOXONE HCL 0.4 MG/1 ML VIAL/CARP IV PRN (21:41)
[2022-08-11] MEDS ORDERED: ALBUT/IPRATROP 3MG/0.5MG NEB 3 ML VIAL NEB PRN (21:41)
[2022-08-11] MEDS ORDERED: GLUCAGON FOR INJ 1 MG VIAL SQ PRN (21:41)
[2022-08-11] MEDS ORDERED: POLYETHYLENE (MIRALAX) 17 GM PACK PO PRN (21:41)
[2022-08-11] MEDS ORDERED: MAGNESIUM HYDROXIDE SUSP 30 ML UDC PO PRN (21:41)
[2022-08-11] MEDS ORDERED: GLUCOSE 40% GEL 15 GM TUBE PO PRN (21:41)
[2022-08-11] MEDS: DOCUSATE SODIUM/SENNA 50/8.6MG TAB PO SCH (22:11)
[2022-08-11] MEDS: ACETAMINOPHEN 1,000 MG/100 ML VIAL IV PRN (22:12)
[2022-08-11] MEDS: D5W AND 1/2NSS 1,000 ML IV SCH (22:12)
[2022-08-11] MEDS: INSULIN ASPART PER UNIT SC SCH (23:13)
--- NOTE | 2022-08-12 00:51 | Communication Note ---
Date of Service: August 12, 2022 HR 90s-100s. possible pacs per telemetry osd clerk. called by nursing about possible afib. will review ecg: sinus w/ pacs. not afib repleting K (3.7) and Mg (1.9)
[2022-08-12] MEDS: POTASSIUM CHLORIDE / WTR 10 MEQ/100 ML PLCT IV SCH ×2 (01:27→02:48)
[2022-08-12] MEDS ORDERED: MAGNESIUM SULFATE / D5W 1 GM/100 ML BAG IV ONE (01:35)
[2022-08-12 03:45] LABS: Basophils # (auto) 0.02 K/uL (0-0.2); Basophils % (auto) 0.2 %; Eosinophils # (auto) 0.08 K/uL (0-0.50); Eosinophils % (auto) 0.9 %; Hemoglobin 11.7 g/dl (12.0-16.0); Immature Granulocytes # (auto) 0.03 K/uL (0.00-0.02); Immature Granulocytes % (auto) 0.4 %; Lymphocytes # (auto) 1.42 K/uL (1.2-3.4); Lymphocytes % (auto) 16.8 %; Mean Corpuscular Hemoglobin 26.2 pg (25.0-34.0); Mean Corpuscular Hgb Conc 31.6 g/dL (32.0-36.0); Mean Platelet Volume 10.4 fL (9.4-12.3); Monocytes # (auto) 0.49 K/uL (0.24-0.82); Monocytes % (auto) 5.8 %; Neutrophils % (auto) 75.9 %; Platelet Count 264 K/uL (130-400); RDW Coefficient of Variation 19.9 % (11.5-14.5); RDW Standard Deviation 60.1 fL (36.4-46.3); Red Blood Count 4.46 M/uL (3.93-5.22); White Blood Count 8.44 K/ul (4.8-10.8)
[2022-08-12] MEDS: MoRPHine SULFATE IR 15 MG TAB (IMMEDIATE RELEASE) PO PRN (03:53)
[2022-08-12 04:03] LABS: Calcium 8.1 mg/dl (8.5-10.1); Creatinine Clr Calc Pharmacy 52.6 ml/min; Est GFR (African American) 93.7 ml/min; Est GFR (Non-African American) 80.8 ml/min
[2022-08-12] MEDS ORDERED: MoRPHine SULFATE 2 MG/ML CARP IV STA (04:04)
[2022-08-12] MEDS: INSULIN ASPART PER UNIT SC SCH ×4 (05:59→20:53)
[2022-08-12] MEDS: D5W AND 1/2NSS 1,000 ML IV SCH ×2 (08:50→22:23)
--- NOTE | 2022-08-12 08:50 | Anesthesiology Consultation ---
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 Surgery Operation Date: 08/12/22 08:00 Proposed Procedures p Left Total Hip Arthroplasty Cemented Constrained Liner - Grey Siu MD s versus Left Percutaneous Pinning with Screws - Grey Siu MD Height/Weight Height: 5 ft 3 in Weight: 56 kg Allergies Allergy/AdvReac Type Severity Reaction Status Date / Time No Known Allergies Allergy Verified 08/11/22 19:26 Medications Home Medications Medication Instructions Recorded Confirmed Last Taken acetaminophen 500 mg tablet 1,000 mg PO DIRECTED PRN Pain 08/11/22 08/11/22 Unknown (Tylenol Extra Strength) amlodipine 5 mg tablet 5 mg PO QAM 08/11/22 08/11/22 08/11/22 levothyroxine 25 mcg tablet 25 mcg PO QAM 08/11/22 08/11/22 08/11/22 linagliptin 5 mg tablet (Tradjenta) 5 mg PO QAM 08/11/22 08/11/22 08/11/22 Active Medications Generic Name Dose Route Start Last Admin Trade Name Freq PRN Reason Stop Dose Admin Dextrose/Sodium Chloride 1,000 mls @ 100 mls/hr 08/11/22 21:41 08/11/22 22:12 D5w And 1/2nss IV 09/10/22 21:40 100 mls/hr .Q10H VÍCTOR Administration Acetaminophen 1,000 mg in 100 mls @ 400 mls/hr 08/11/22 21:41 08/11/22 23:04 Ofirmev IV 08/14/22 21:40 Infused Q8H PRN Infusion Pain/Fever Insulin Aspart 0 units 08/12/22 00:00 08/12/22 05:59 Insulin Aspart Per Unit SC 09/11/22 00:00 1 units Q6 VÍCTOR Administration Morphine Sulfate 15 mg 08/11/22 21:41 08/12/22 03:53 Morphine Sulfate Ir 15 Mg Tab (Immediate Release) PO 08/25/22 21:40 15 mg Q4H PRN Administration moderate-severe pain Senna/Docusate Sodium 2 tab 08/11/22 21:41 08/11/22 22:11 Docusate Sodium/Senna 50/8.6mg Tab PO 09/10/22 21:40 2 tab HS VÍCTOR Administration Past Medical History Medical History COVID-19 Diabetes Femur fracture, left Hyperlipidemia Hypertension Hypothyroidism Past Family History Family History Other Family history non-contributory Past Surgical History Surgical History History of repair of right hip joint Social History Smoking Status: Never smoker Hx Alcohol Use: Yes Alcohol type: hard liquor alcohol intake frequency: holidays/special occasions only Hx Substance Use: No substance use type: does not use Physical Exam Vital Signs Last Vital Signs Temp 98.1 F 08/12/22 08:18 Pulse 92 H 08/12/22 07:07 Resp 20 08/12/22 08:18 BP 173/82 H 08/12/22 08:18 Pulse Ox 85 L 08/12/22 08:18 O2 Del Method 08/12/22 08:18 O2 Flow Rate 2 08/12/22 08:18 Testing Laboratory Results 08/12/22 03:30 08/12/22 03:30 PT 10.4 Seconds (9.0-12.0) 08/11/22 18:02 INR 1.0 (0.9-1.1) 08/11/22 18:02 APTT 30.5 Seconds (21.0-31.0) 08/11/22 18:02 Blood Type A Positive 08/12/22 03:30 Antibody Screen NEGATIVE 08/12/22 03:30 08/12/22 08/11/22 05:51 23:06 POC Glucose 142 H 97 Electrocardiogram Date: 08/12/22 Sinus rhythm with Premature atrial complexes, rate 89 bpm Inferior infarct , age undetermined Anterolateral infarct , age undetermined Abnormal ECG No previous ECGs available
[2022-08-12] MEDS: ACETAMINOPHEN 1,000 MG/100 ML VIAL IV PRN (08:51)
[2022-08-12] MEDS: amLODIPine BESYLATE 5 MG TAB PO SCH (08:51)
[2022-08-12] MEDS ORDERED: LIDOCAINE 1% LOCAL 20 ML VIAL ONE (09:04)
[2022-08-12] MEDS: LEVOTHYROXINE SODIUM 25 MCG TABLET PO SCH (09:29)
--- NOTE | 2022-08-12 09:45 | XRay Report ---
XR chest 1V portable CLINICAL HISTORY: pre-op TECHNIQUE: Single frontal radiograph of the chest was obtained. Comparison: None available at the time of this dictation. FINDINGS: No lines and tubes are seen. Cardiomegaly is noted. Prominence and cephalization of the vasculature i s seen. A skinfold is noted. No evidence of pleural effusion or pneumothorax. IMPRESSION: Cardiomegaly with mild pulmonary vascular congestion. ACT 112: Negative or not required by law. Electronically signed by: Raffi Amador M.D. 08/12/2022 9:43 AM
--- NOTE | 2022-08-12 10:37 | Orthopedic Consultation ---
Date of Consultation August 12, 2022 Assessment & Plan (1) Femur fracture, left: I am going to order a stat MRI of her left hip to evaluate for an acute fracture. It would be extremely uncommon for an acute left hip fracture to present as she is with no pain when I passively move the hip, so I think it is c ritically important that we establish the diagnosis before we expose her to the potential risks of surgery. I also ordered a CT scan of her left knee to evaluate for fracture. May consider aspirating her knee and doing a corticosteroid injection if no fracture is visualized and she simply aggravated her underlying arthritis. (2) Arthritis of left knee: (3) Effusion, left knee: History of Present Illness Reason for Consultation: Left hip fracture Attending Physician: Deidre Martínez MD History of Present Illness Jazzy Maloney is an 87-year-old female with past medical history significant for hypertension, hyperlipidemia, diabetes, hypothyroidism, and urinary incontinence who is presenting today from home after a fall. Patient was up ambulating around 5 AM yesterday morning when she states her legs got weak and gave out from under her causing her to fall landing on her side and head. She lives with her daughter, who with the assistance of her was able to get the patient back in bed and cleaned off her scalp which was bleeding from where she had it. She denies loss of consciousness, denies any chest pain, palpitations, shortness of breath preceding the fall. She not exactly able to explain how the fall happened but just says she felt weak. Since the fall she has not been able to ambulate and has significant pain at her left leg, as well as the right side of her head. EMS was called to her home so that she may be transported to the ED for further evaluation pain control. Patient also complains of feeling generally "unwell" for couple days stating she has been tired and not wanting to eat much and believes her daughter took her temperature at home and told her she had a fever. I also spoke to daughter, Netta, on the phone this evening who states that her mother had been eating well and no complaints of feeling sick this week. She did have 1 episode of constipation which was alleviated with a laxative. No one else is sick at home. Patient was seen and examined in the emergency room. Left femur x-ray was performed and revealed an impacted subcapital fracture left proximal femur and a large joint effusion of the left knee as well as 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 Tib-fib x-rays were done and were read as negative for fracture. C-spine negative for fracture or subluxation. There is mild age- indeterminate superior endplate compression deformities at T2 and T3, likely chronic. Head CT negative for hemorrhage, mass-effect, or acute ischemia. On presentation, patient is hypertensive with BP 180s over 100, HR 90s, oxygen 90 to 92% on room air. Did desat down to high 80s after receiving morphine and therefore was placed on 2 L NC. She is afebrile. COVID-19 test was positive. She was admitted to the internal medicine service on isolation precautions. Orthopedics was consulted for management of her left femoral neck fracture. Patient was seen and examined on the floor this morning. When asked where her pain is she localizes it to the knee. I asked her several times if she has any pain in her left hip and she denies any pain whatsoever in her left hip. Denies any numbness or tingling down the leg. Allergies Allergy/AdvReac Type Severity Reaction Status Date / Time No Known Allergies Allergy Verified 08/11/22 19:26 Home Medications Medication Instructions Recorded Confirmed Type acetaminophen 500 mg tablet 1,000 mg PO DIRECTED PRN Pain 08/11/22 08/11/22 History (Tylenol Extra Strength) amlodipine 5 mg tablet 5 mg PO QAM 08/11/22 08/11/22 History levothyroxine 25 mcg tablet 25 mcg PO QAM 08/11/22 08/11/22 History linagliptin 5 mg tablet (Tradjenta) 5 mg PO QAM 08/11/22 08/11/22 History Patient History Medical History COVID-19 Diabetes Femur fracture, left Hyperlipidemia Hypertension Hypothyroidism Surgical History History of repair of right hip joint Family History Other Family history non-contributory Social History Smoking Status: Never smoker Hx Alcohol Use: Yes Alcohol type: hard liquor Hx Substance Use: No Preferred Language: Burmese Communication Ability: Effective 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 She answers all questions appropriately. Left lower extremity exam reveals the patient have a large effusion in the left knee. She keeps the knee flexed approximately 40 degrees as the most comfortable position. She is tender to palpation along the medial and lateral joint lines. No tenderness directly over the patella. She is tender over the suprapatellar pouch. I performed a gentle logroll exam of her hip and she said this did not hurt her hip but did hurt her knee. While supporting her knee I then gently flexed her hip and once again she reported no pain in her hip at all. Did hurt her knee however. I then palpated around her left hip. There was no tenderness to palpation in the groin over the greater trochanter over the gluteus medius or over the short external rotators of the hip. No skin lesions or bruising was noted over the left hip. Neurovascular intact. Results & Data ([facility]) Vital Signs (Past 12 Hours) Vital Signs Temp Pulse Pulse Resp BP Pulse Ox Pulse Ox 08/12/22 09:00 93 08/12/22 08:18 36.7 C 20 173/82 H 85 L 08/12/22 07:07 92 H 08/12/22 04:42 156/76 H 08/12/22 03:55 36.5 C 86 20 93 08/12/22 01:04 66 08/12/22 01:04 08/11/22 22:47 08/11/22 22:47 36.8 C 91 H 20 159/80 H 97 O2 Del Method O2 Del Method O2 Flow Rate O2 Flow Rate 08/12/22 09:00 Nasal Cannula 3 08/12/22 08:18 Nasal Cannula 2 08/12/22 07:07 08/12/22 04:42 08/12/22 03:55 Nasal Cannula 2 08/12/22 01:04 08/12/22 01:04 Nasal Cannula 2 10/26/22 22:47 Nasal Cannula 2 08/11/22 22:47 Nasal Cannula 2 Diagnostic Findings I reviewed her x-rays and CT scan and agree with the radiologist that it appears that she has a valgus impacted left femoral neck fracture. However it is possible that she sustained this fracture in the past and it healed in this position without any surgery. I also reviewed her femur x-rays and tib-fib films. I agree with the radiologist that there is severe arthritic change in the knee and a large effusion. I did not see a fracture, although based on her clinical exam my suspicion for fracture is high.
--- NOTE | 2022-08-12 12:21 | CT Scan Report ---
CT knee LT wo con CLINICAL HISTORY: Left knee pain, Effusion s/p fall. TECHNIQUE: Multidetector row helical CT of the left knee was performed without intravenous contrast. Coronal and sagittal reformations were obtained. Automated dose lowering techniques and/or adjustment according to patient size were utilized for this examination. CT DOSE: 135.38 mGy.cm Comparison: None available at the time of this dictation. FINDINGS: There is irregularity of the lateral tibial plateau which may represent impacted fracture. Degenerati ve changes are seen with osteophyte formation, bony fragmentation, joint space narrowing, and chondro calcinosis. Layering effusion is seen compatible with lipohemarthrosis. Mild soft tissue swelling is seen. IMPRESSION: Severe degenerative changes are seen. There is lipohemarthrosis with likely impacted fracture in the lateral tibial plateau. ACT 112: Negative or not required by law. Electronically signed by: Raffi Amador M.D. 08/12/2022 12:20 PM
--- NOTE | 2022-08-12 14:32 | Magnetic Resonance Report ---
MR hip LT wo con HISTORY: Fall. Left hip pain. eval for bone marrow edema in femoral neck TECHNIQUE: Multiplanar multi MRI of the pelvis and left hip were performed without contrast according to standard departmental protocol. COMPARISON STUDY: Pelvis CT 08/11/2022. FINDINGS: There is mild shortening and slight deformity at the left femoral neck without associated m arrow edema or fracture line. This favors an old, healed left femoral neck fracture. No acute fractur e or dislocation within the pelvis or hips. Cannulated screws noted within the proximal right femur. The right hip is obscured by the metallic artifact. A pessary device is noted. The bladder is decompr essed by Fierro catheter. Bilateral trochanteric bursitis most pronounced on the left. There is mild s oft tissue edema within the bilateral adductor muscles. This may represent a mild muscular strain. Sm all uterine fibroid is noted. Degenerative changes within the visualized lumbar spine. There is moder ate osteoarthritis within the left hip. There is also mild edema within the bilateral tensor fascia l vicenta muscles. IMPRESSION: 1. Old, healed left femoral neck fracture. No acute fracture or dislocation within the left hip. 2. Postoperative changes within the right hip. 3. Bilateral trochanteric bursitis most pronounced on the left. 4. Mild edema within the bilateral hip musculature which is symmetric. ACT 112: Negative or not required by law. Electronically signed by: Bharat Henry M.D. 08/12/2022 2:31 PM
--- NOTE | 2022-08-12 15:26 | Hospitalist Progress Note ---
Date of Service August 12, 2022 Assessment & Plan (1) Femur fracture, left: Plan: - Left femur x-ray was performed and revealed an impacted subcapital fracture left proximal femur and a large joint effusion of the left knee as well as 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 -However, MRI showed that the fracture is old, no evidence of new or acute femur fracture -Ortho plans joint aspiration, with possible steroid injection of the knee - Tylenol, morphine, heating pad ordered for pain control. Cautious keerthi of opiates given concern for respiratory status with concomitant covid infection. (2) COVID-19: Plan: -has been feeling ill for a few days - Positive today in ED, not vaccinated, not really able to quantify when symptoms began. - Patient was mildly hypoxic prior to pain medication at 90-92%. No underlying COPD however lung disease. She is not tachypneic or dyspneic, not using accessory muscles. -has been started on Remdesivir. - Supportive care. Isolation precautions. - On 2 L NC. (3) Diabetes: Plan: - On Tradjenta at home, will hold during hospitalization. - Accu-Cheks AC at bedtime/Q6h as well n.p.o., SSI only without basal insulin. (4) Hypertension: Plan: - Continue amlodipine 5 mg daily. - Required hypertensive in the ED, likely secondary to pain. Will order hydralazine as needed every 8 hours overnight for elevated SBP >185 in the setting of controlled pain. (5) Hypothyroidism: Plan: - Continue levothyroxine 25 mcg daily. Plan - Admit to [facility] telemetry. - SCDs ordered for VTE ppx. Opt for Heparin over Lovenox for VTE PPx due to impending surgery. - DNR/DNI. Admission and Anticipated Discharge Date Admission Date: August 11, 2022 Subjective patient seen and examined, denies any hip pain Review of Systems Review of Systems: All systems reviewed are negative, apart from the ones contained in the history. Physical Exam Physical Exam: The patient is awake, alert and oriented 3, well developed and well nourished, normocephalic and atraumatic, lying in bed and in no acute dist ress. HEENT--PERRL, EOMI, mucous membranes and oropharynx mildly dry Neck--supple. No JVD. No bruits. Thyroid normal, trachea midline, no adenopathy. Heart--normal S1 and S2. No murmurs, rubs or gallops. Lungs--clear bilaterally, no respiratory distress, no accessory muscle use. Abdomen--normal bowel sounds and soft. Mild epigastric and left sided abdominal pain Extremities--no cyanosis or clubbing. No edema. Dermatologic--normal skin turgor, normal color, no abnormal lymph nodes, no rash. Neurologic--cranial nerves II through XII grossly intact. Rheumatologic--normal range of motion. Psychiatric--normal affect. Results & Data Results & Data ([facility]) Vital Signs (Past 12 Hours) Vital Signs Temp Pulse Pulse Resp BP Pulse Ox Pulse Ox 08/12/22 12:20 98.2 F 79 21 162/80 H 93 08/12/22 09:00 93 08/12/22 08:18 98.1 F 20 173/82 H 85 L 08/12/22 07:07 92 H 08/12/22 04:42 156/76 H 08/12/22 03:55 97.7 F 86 20 93 O2 Del Method O2 Del Method O2 Flow Rate O2 Flow Rate 08/12/22 12:20 Nasal Cannula 3 08/12/22 09:00 Nasal Cannula 3 08/12/22 08:18 Nasal Cannula 2 08/12/22 07:07 08/12/22 04:42 08/12/22 03:55 Nasal Cannula 2 PG Care Time/CCT Total # of Minutes Spent Total Time Spent with Patient: Total time spent is greater than 50% in coordination of care (as documented) at patient's floor/unit and/or counseling patient: Coding Level of Care Code 87792 Subseq Hosp Care Lvl 2 Diagnoses Femur fracture, left S72.92XA COVID-19 U07.1 Diabetes E11.9 Hypertension I10 Hypothyroidism E03.9 Time Spent (min) 35
--- NOTE | 2022-08-12 18:17 | XRay Report ---
XR knee LT 1 or 2V routine HISTORY: 87 years-old Female baseline to allow for comparison films. Known OA. Chronic left knee pa in COMPARISON: CT left knee of same day, left femur radiographs 08/11/2022 TECHNIQUE: 2 views of the left knee FINDINGS: Chondrocalcinosis. Moderate tricompartmental osteoarthritis. No acute fracture or dislocation identif ied. Numerous intra-articular loose bodies. Moderate size joint effusion which on CT demonstrated a l ayering hematocrit level compatible with hemarthrosis. No lipohemarthrosis identified. IMPRESSION: 1. Moderate joint effusion without acute fracture or dislocation identified. 2. Tricompartmental osteoarthritis with chondrocalcinosis and numerous intra-articular loose bodies. ACT 112: Negative or not required by law. The above report was generated using voice recognition software. It may contain grammatical, syntax o r spelling errors. Electronically signed by: Magnus Celestin M.D. 08/12/2022 6:14 PM
[2022-08-12] MEDS: REMDESIVIR 100 MG in SODIUM CHLORIDE 0.9% 230 ML IV SCH (20:53)
[2022-08-12] MEDS: DOCUSATE SODIUM/SENNA 50/8.6MG TAB PO SCH (20:53)
[2022-08-12] MEDS: ONDANSETRON INJ 2 MG/ML 2 ML VIAL IV PRN (21:01)
[2022-08-13] MEDS: ACETAMINOPHEN 1,000 MG/100 ML VIAL IV PRN ×2 (04:15→20:30)
[2022-08-13] MEDS: LEVOTHYROXINE SODIUM 25 MCG TABLET PO SCH (05:57)
[2022-08-13 08:05] LABS: Hematocrit (blood only) 34.2 % (34.1-44.9); Hemoglobin 11.1 g/dl (12.0-16.0); Mean Corpuscular Hemoglobin 26.7 pg (25.0-34.0); Mean Corpuscular Hgb Conc 32.5 g/dL (32.0-36.0); Mean Corpuscular Volume 82.4 fL (80.0-100.0); Mean Platelet Volume 11.1 fL (9.4-12.3); Platelet Count 258 K/uL (130-400); RDW Coefficient of Variation 19.3 % (11.5-14.5); RDW Standard Deviation 58.6 fL (36.4-46.3); Red Blood Count 4.15 M/uL (3.93-5.22); White Blood Count 6.73 K/ul (4.8-10.8)
[2022-08-13 08:39] LABS: BUN Creatinine Ratio 23.1 (10-20); Calcium 7.6 mg/dl (8.5-10.1); Creatinine Clr Calc Pharmacy 60.7 ml/min; Est GFR (African American) 98.2 ml/min; Est GFR (Non-African American) 84.7 ml/min; Potassium 3.4 mmol/L (3.5-5.1)
[2022-08-13] MEDS: D5W AND 1/2NSS 1,000 ML IV SCH ×2 (08:55→16:58)
[2022-08-13] MEDS: amLODIPine BESYLATE 5 MG TAB PO SCH (08:56)
[2022-08-13] MEDS: INSULIN ASPART PER UNIT SC SCH ×4 (09:00→20:21)
[2022-08-13] MEDS: MoRPHine SULFATE IR 15 MG TAB (IMMEDIATE RELEASE) PO PRN (09:09)
--- NOTE | 2022-08-13 10:57 | Orthopedic Progress Note ---
Date of Service August 13, 2022 Assessment & Plan (1) Femur fracture, left: Plan: Nonweightbearing on left lower extremity with walker assistance Ice with easy wrap Pain control p.o. medication Keep dressing in place Pain control with p.o. medication DVT prophylaxis per medicine service Primary care is deferred to medicine service Patient will need to follow-up in our clinic 10 to 14 days after discharge. (2) Arthritis of left knee: (3) Effusion, left knee: Admission and Anticipated Discharge Date Admission Date: August 11, 2022 Subjective This 87-year-old female seen for follow-up this morning. She is COVID-positive and in isolation. Yesterday she had a left knee joint aspiration performed by Dr. Siu that expressed gross blood. Patient states that he does feel much better today. He is currently wrapped with an Jose Manuel bandage. This was not removed. She is still a little short of breath and on oxygen via nasal cannula. She states that her knee is body rolling machine tender and she has no pain in her left hip. Review of Systems Review of Systems: All systems reviewed & are unremarkable except as noted in Subjective Physical Exam Physical Exam: Left knee: Jose Manuel bandage was kept in place. Patient is able to perform an active straight leg raise test. Quad strength is 3+ out of 5. She is able to actively dorsi and plantarflex her foot. She tolerates passive hip flexion to 90 degrees and internal and external rotation. However passive knee flexion causes pain over the medial aspect of her knee and she asked me not to do this anymore. Patient is able to detect light sensation to touch over the pad of her digits. She is neurovascularly intact. Results & Data ([facility]) Vital Signs (Past 12 Hours) Vital Signs Temp Pulse Pulse Resp BP Pulse Ox O2 Del Method 08/13/22 08:11 37 C 66 20 133/68 95 Nasal Cannula 08/13/22 03:52 37.9 C H 68 18 181/81 H 94 Nasal Cannula 08/13/22 01:49 88 O2 Flow Rate 08/13/22 08:11 3 08/13/22 03:52 3 08/13/22 01:49 Diagnostic Findings Laboratory Results WBC 6.73 K/ul (4.8-10.8) 08/13/22 07:30 RBC 4.15 M/uL (3.93-5.22) 08/13/22 07:30 Hgb 11.1 g/dl (12.0-16.0) L 08/13/22 07:30 Hct 34.2 % (34.1-44.9) 08/13/22 07:30 MCV 82.4 fL (80.0-100.0) 08/13/22 07:30 MCH 26.7 pg (25.0-34.0) 08/13/22 07:30 MCHC 32.5 g/dL (32.0-36.0) 08/13/22 07:30 RDW Std Deviation 58.6 fL (36.4-46.3) H 08/13/22 07:30 RDW Coeff of Rah 19.3 % (11.5-14.5) H 08/13/22 07:30 Plt Count 258 K/uL (130-400) 08/13/22 07:30 MPV 11.1 fL (9.4-12.3) 08/13/22 07:30 Immature Gran % (Auto) 0.4 % 08/12/22 03:30 Neut % (Auto) 75.9 % 08/12/22 03:30 Lymph % (Auto) 16.8 % 08/12/22 03:30 [place] % (Auto) 5.8 % 08/12/22 03:30 Eos % (Auto) 0.9 % 08/12/22 03:30 Baso % (Auto) 0.2 % 08/12/22 03:30 Neut # (Auto) 6.40 K/uL (1.4-6.5) 08/12/22 03:30 Lymph # (Auto) 1.42 K/uL (1.2-3.4) 08/12/22 03:30 [place] # (Auto) 0.49 K/uL (0.24-0.82) 08/12/22 03:30 Eos # (Auto) 0.08 K/uL (0-0.50) 08/12/22 03:30 Baso # (Auto) 0.02 K/uL (0-0.2) 08/12/22 03:30 Immature Gran # (Auto) 0.03 K/uL (0.00-0.02) H 08/12/22 03:30 PT 10.4 Seconds (9.0-12.0) 08/11/22 18:02 INR 1.0 (0.9-1.1) 08/11/22 18:02 APTT 30.5 Seconds (21.0-31.0) 08/11/22 18:02 PTT Ratio 1.1 08/11/22 18:02 Sodium 131 mmol/L (136-145) L 08/13/22 07:30 Potassium 3.4 mmol/L (3.5-5.1) L 08/13/22 07:30 Chloride 103 mmol/L (98-107) 08/13/22 07:30 Carbon Dioxide 23 mmol/L (21-32) 08/13/22 07:30 Anion Gap 5 (3-11) 08/13/22 07:30 BUN 12 mg/dl (6-23) 08/13/22 07:30 Creatinine 0.52 mg/dl (0.6-1.2) L 08/13/22 07:30 Est Cr Clr Drug Dosing 60.7 ml/min 08/13/22 07:30 Est GFR ( Amer) 98.2 ml/min 08/13/22 07:30 Est GFR (Non-Af Amer) 84.7 ml/min 08/13/22 07:30 BUN/Creatinine Ratio 23.1 (10-20) H 08/13/22 07:30 Glucose 122 mg/dl (70-99(Fasting)) H 08/13/22 07:30 POC Glucose 127 mg/dl (70-99) H 08/13/22 07:56 Calcium 7.6 mg/dl (8.5-10.1) L 08/13/22 07:30 Magnesium 1.9 mg/dl (1.7-2.4) 08/11/22 18:02 Total Bilirubin 0.3 mg/dl (0.2-1.0) 08/11/22 18:02 AST 20 U/L (13-39) 08/13/22 07:30 ALT 9 U/L (7-52) 08/13/22 07:30 Alkaline Phosphatase 71 U/L (34-104) 08/11/22 18:02 Total Protein 6.8 gm/dl (6.0-8.3) 08/11/22 18: Albumin 3.6 gm/dl (3.4-5.0) 08/11/22 18:02 Globulin 3.2 gm/dl (2.5-4.0) 08/11/22 18:02 Albumin/Globulin Ratio 1.1 (0.9-2) 08/11/22 18:02 Nasal Screen MRSA (PCR) Negative (Negative) 08/11/22 22:30 SARS-CoV-2, RNA, NAAT POSITIVE (NEGATIVE) A* 08/11/22 19:02 Blood Type A Positive 08/12/22 03:30 Blood Type Recheck A Positive 08/12/22 03:30 Antibody Screen NEGATIVE 08/12/22 03:30 Impressions Femur X-Ray 08/11/22 17:46 SINGLE VIEW PELVIS; 2 VIEWS RIGHT FEMUR CLINICAL HISTORY: Fall with right leg pain. FINDINGS: An AP view of the pelvis with AP and crosstable lateral views of the left femur are obtained. No prior studies are available for comparison at the time of dictation. The skeletal structures are heterogeneously osteopenic. There is an impacted subcapital fracture of the left proximal femur. Overlying soft tissue edema is noted. The distal left femur appears intact. No acute fracture is seen Involving the right hip or the bony pelvis. There is chronic deformity of the right proximal femur with 3 intertrochanteric cannulated cortical lag screws in place. Moderate to advanced arthritic change and joint space narrowing is seen in the hips. Sclerotic changes noted in the sacroiliac joints. Advanced arthritic changes seen in the left knee. There is a large left knee joint effusion. Advanced atherosclerotic calcification is seen in the femoral arteries. A pessary device projects over the pelvis. IMPRESSION: 1. Impacted subcapital fracture of the left proximal femur. 2. No additional acute fracture is seen involving the bony pelvis or the right hip. 3. Osteopenia with chronic changes as above. 4. 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 Electronically signed by: Jasvir Ruggiero M.D. 08/11/2022 6:37 PM Pelvis X-Ray 08/11/22 17:46 SINGLE VIEW PELVIS; 2 VIEWS RIGHT FEMUR CLINICAL HISTORY: Fall with right leg pain. FINDINGS: An AP view of the pelvis with AP and crosstable lateral views of the left femur are obtained. No prior studies are available for comparison at the time of dictation. The skeletal structures are heterogeneously osteopenic. There is an impacted subcapital fracture of the left proximal femur. Overlying soft tissue edema is noted. The distal left femur appears intact. No acute fracture is seen Involving the right hip or the bony pelvis. There is chronic deformity of the right proximal femur with 3 intertrochanteric cannulated cortical lag screws in place. Moderate to advanced arthritic change and joint space narrowing is seen in the hips. Sclerotic changes noted in the sacroiliac joints. Advanced arthritic changes seen in the left knee. There is a large left knee joint effusion. Advanced atherosclerotic calcification is seen in the femoral arteries. A pessary device projects over the pelvis. IMPRESSION: 1. Impacted subcapital fracture of the left proximal femur. 2. No additional acute fracture is seen involving the bony pelvis or the right hip. 3. Osteopenia with chronic changes as above. 4. 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 Electronically signed by: Jasvir Ruggiero M.D. 08/11/2022 6:37 PM Tibia/Fibula X-Ray 08/11/22 17:46 LEFT TIBIA AND FIBULA 2 VIEWS CLINICAL HISTORY: Fall with left leg injury. FINDINGS: AP and lateral views of the left tibia and fibula are obtained. No prior studies are available for comparison at the time of dictation. The skeletal structures are osteopenic. There is no radiographic evidence of left tibial fibular fracture. Arthritic change is seen in the knee with a large knee joint effusion. The ankle mortise appears intact. An os trigonum is incidentally noted. The overlying soft tissues are normal as visualized. Atherosclerotic calcification is seen in the regional arteries. IMPRESSION: 1. There is no radiographic evidence of left tibial or fibular fracture. 2. Large knee joint effusion. Electronically signed by: Jasvir Ruggiero M.D. 08/11/2022 6:[address] 08/11/22 18:15 CT SCAN OF THE CERVICAL SPINE CLINICAL HISTORY: Fall. Head injury. COMPARISON STUDY: No priors. TECHNIQUE: CT scan of the cervical spine is performed from the skull base to the upper thoracic spine. Images are reviewed in the axial, sagittal, and coronal planes. IV contrast was not administered for this examination. A dose lowering technique was utilized adhering to the principles of ALARA. There FINDINGS: Skeletal structures: The skeletal structures are osteopenia. There is no evidence of fracture or subluxation involving the cervical spine. Vertebral body height is maintained. There is minimal anterolisthesis at C5-C6 and C7-T1. Alignment is otherwise preserved. Small anterior osteophytes are seen throughout. The odontoid process and lateral masses are intact. The atlantoaxial articulation is preserved noting productive degenerative change. The spinous processes appear intact. There are mild and age indeterminate superior endplate compression deformities of T2 and T3. Intervertebral discs: There is severe disc space narrowing at C6-C7 with bony fusion at this level. Moderate disc space narrowing is seen at C3-C4, C4-C5, C5- C6. Central canal: Posterior disc osteophyte complexes are seen also at all cervical levels between C3-C4 and C6-C7. This likely contributes to multilevel acquired compromise of the central canal. Soft tissues: The prevertebral and paraspinous soft tissues are within normal limits. There is atherosclerotic calcification of the carotid bulbs. The thyroid gland is enlarged and heterogeneous. Calvarium: The visualized calvarium at the skull base appears intact. Brain parenchyma: Partially visualized brain parenchyma at the skull base is within normal limits. Sinuses and mastoids: Trace fluid is noted in the sphenoid sinuses. Trace mucosal thickening is noted in the left maxillary antrum. The mastoid air cells are well pneumatized. Lung apices: Clear as visualized. IMPRESSION: 1. There is no evidence of fracture or subluxation involving the cervical spine. 2. Osteopenia and spondylotic changes above. 3. Mild age indeterminate superior endplate compression deformities of T2 and T3 are likely chronic. Correlate for point tenderness. ACT 112: Negative or not required by law. Electronically signed by: Jasvir Ruggiero M.D. 08/11/2022 7:[address] 08/11/22 18:15 CT SCAN OF THE BRAIN WITHOUT IV CONTRAST CLINICAL HISTORY: Fall. Head injury. COMPARISON STUDY: No priors. TECHNIQUE: Unenhanced axial CT scan of the brain is performed from the vertex to the skull base. A dose lowering technique was utilized adhering to the principles of ALARA. CT DOSE: 971.97 mGy.cm FINDINGS: Brain parenchyma: There is age-related involutional change noting moderate to advanced subcortical and periventricular microangiopathic disease. There is no hemorrhage, mass effect, or evidence of acute territorial ischemia by CT criteria. Mineralization is noted in the basal ganglia. [place]-white matter differentiation is preserved. No extra-axial fluid collection is seen. Ventricles, sulci, cisterns: Prominent secondary to involutional change. Intracranial vasculature: There is atherosclerotic calcification of the cavernous carotid and vertebral arteries. Calvarium: The skeletal structures are osteopenic. No depressed calvarial fracture is seen. Sinuses and mastoids: There is trace fluid within the sphenoid sinuses. The remaining paranasal sinuses are clear. The mastoid air cells are well pneumatized. Orbits: The bony orbits are grossly intact. There are bilateral ocular lens implants. IMPRESSION: There is no hemorrhage, mass effect, or evidence of acute territorial ischemia by CT criteria. ACT 112: Negative or not required by law. Electronically signed by: Jasvir Ruggiero M.D. 08/11/2022 6:[address] 08/11/22 18:34 CT SCAN OF THE PELVIS WITHOUT IV CONTRAST CLINICAL HISTORY: Fall. Left hip pain. COMPARISON STUDY: Radiographs of the pelvis and left femur performed the same day 08/11/2022. TECHNIQUE: CT scan of the pelvis is performed from the pelvic inlet to the proximal femora. Images reviewed in the axial, sagittal, and coronal planes. IV contrast was not administered for this examination. A dose lowering technique was utilized adhering to the principles of ALARA. CT DOSE: 306.43 mGy.cm FINDINGS: The skeletal structures are heterogeneously osteopenic. There is impacted subcapital fracture of the left proximal femur with mild surrounding hemorrhage. No additional acute fracture is seen involving the right proximal femur or the bony pelvis. There is chronic posttraumatic deformity of the right proximal femur with 3 cannulated intertrochanteric cortical lag screws in place. No lytic or blastic lesion is seen. Moderate to advanced arthritic change and joint space narrowing is noted in the hips. There is degenerative sclerosis of the sacroiliac joints. There is generalized atrophy of the regional musculature. The bladder, uterus, and adnexa are normal as visualized. A pessary device is in place. No pelvic sidewall or inguinal adenopathy is seen. Advanced atherosclerotic calcification is noted in the iliac vessels. The imaged loops of bowel show no evidence of obstruction. There is advanced diverticulosis of the left colon without CT evidence of acute diverticulitis. No intraperitoneal free air or free fluid is seen in the pelvis. IMPRESSION: 1. Impacted subcapital fracture of the left proximal femur. 2. No additional acute fracture is seen involving the right hip or the bony pelvis. ACT 112: Negative or not required by law. Dictated: 08/11/2022 7:00 PM Transcribed: 08/11/2022 7:51 PM [facility] [id number] Electronically signed by: Jasvir Ruggiero M.D. 08/11/2022 8:16 PM Chest X-Ray 08/11/22 21:41 XR chest 1V portable CLINICAL HISTORY: pre-op TECHNIQUE: Single frontal radiograph of the chest was obtained. Comparison: None available at the time of this dictation. FINDINGS: No lines and tubes are seen. Cardiomegaly is noted. Prominence and cephalization of the vasculature is seen. A skinfold is noted. No evidence of pleural effusion or pneumothorax. IMPRESSION: Cardiomegaly with mild pulmonary vascular congestion. ACT 112: Negative or not required by law. Electronically signed by: Raffi Amador M.D. 08/12/2022 9:[address] 08/12/22 10:35 CT knee LT wo con CLINICAL HISTORY: Left knee pain, Effusion s/p fall. TECHNIQUE: Multidetector row helical CT of the left knee was performed without intravenous contrast. Coronal and sagittal reformations were obtained. Automated dose lowering techniques and/or adjustment according to patient size were uti lized for this examination. CT DOSE: 135.38 mGy.cm Comparison: None available at the time of this dictation. FINDINGS: There is irregularity of the lateral tibial plateau which may represent impacted fracture. Degenerative changes are seen with osteophyte formation, bony fragmentation, joint space narrowing, and chondrocalcinosis. Layering effusion is seen compatible with lipohemarthrosis. Mild soft tissue swelling is seen. IMPRESSION: Severe degenerative changes are seen. There is lipohemarthrosis with likely impacted fracture in the lateral tibial plateau. ACT 112: Negative or not required by law. Electronically signed by: Raffi Amador M.D. 08/12/2022 12:20 PM Hip MRI 08/12/22 10:48 MR hip LT wo con HISTORY: Fall. Left hip pain. eval for bone marrow edema in femoral neck TECHNIQUE: Multiplanar multi MRI of the pelvis and left hip were performed without contrast according to standard departmental protocol. COMPARISON STUDY: Pelvis CT 08/11/2022. FINDINGS: There is mild shortening and slight deformity at the left femoral neck without associated marrow edema or fracture line. This favors an old, healed left femoral neck fracture. No acute fracture or dislocation within the pelvis or hips. Cannulated screws noted within the proximal right femur. The right hip is obscured by the metallic artifact. A pessary device is noted. The bladder is decompressed by Fierro catheter. Bilateral trochanteric bursitis most pronounced on the left. There is mild soft tissue edema within the bilateral adductor muscles. This may represent a mild muscular strain. Small uterine fibroid is noted. Degenerative changes within the visualized lumbar spine. There is moderate osteoarthritis within the left hip. There is also mild edema within the bilateral tensor fascia christos muscles. IMPRESSION: 1. Old, healed left femoral neck fracture. No acute fracture or dislocation within the left hip. 2. Postoperative changes within the right hip. 3. Bilateral trochanteric bursitis most pronounced on the left. 4. Mild edema within the bilateral hip musculature which is symmetric. ACT 112: Negative or not required by law. Electronically signed by: Bharat Henry M.D. 08/12/2022 2:31 PM Knee X-Ray 08/12/22 16:43 XR knee LT 1 or 2V routine HISTORY: 87 years-old Female baseline to allow for comparison films. Known OA. Chronic left knee pain COMPARISON: CT left knee of same day, left femur radiographs 08/11/2022 TECHNIQUE: 2 views of the left knee FINDINGS: Chondrocalcinosis. Moderate tricompartmental osteoarthritis. No acute fracture or dislocation identified. Numerous intra-articular loose bodies. Moderate size joint effusion which on CT demonstrated a layering hematocrit level compatible with hemarthrosis. No lipohemarthrosis identified. IMPRESSION: 1. Moderate joint effusion without acute fracture or dislocation identified. 2. Tricompartmental osteoarthritis with chondrocalcinosis and numerous intra- articular loose bodies. ACT 112: Negative or not required by law. The above report was generated using voice recognition software. It may contain grammatical, syntax or spelling errors. Electronically signed by: Magnus Celestin M.D. 08/12/2022 6:14 PM
--- NOTE | 2022-08-13 13:56 | Hospitalist Progress Note ---
Date of Service August 13, 2022 Assessment & Plan (1) Femur fracture, left: Plan: - Left femur x-ray was performed and revealed an impacted subcapital fracture left proximal femur and a large joint effusion of the left knee as well as 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 -However, MRI showed that the fracture is old, no evidence of new or acute femur fracture -She had left knee joint aspiration, which revealed gross blood - Tylenol, morphine, heating pad ordered for pain control. Cautious keerthi of opiates given concern for respiratory status with concomitant covid infection. -Will remain non weight bearing on left lower extremity, with use of walker Outpatient follow up wit Ortho in 14 days (2) COVID-19: Plan: -has been feeling ill for a few days - Positive today in ED, not vaccinated, not really able to quantify when symptoms began. - Patient was mildly hypoxic prior to pain medication at 90-92%. No underlying COPD however lung disease. She is not tachypneic or dyspneic, not using accessory muscles. -has been started on Remdesivir, today is day 2 - Supportive care. Isolation precautions. - On 2 L NC. (3) Diabetes: Plan: - On Tradjenta at home, will hold during hospitalization. - Accu-Cheks AC at bedtime/Q6h as well n.p.o., SSI only without basal insulin. (4) Hypertension: Plan: - Continue amlodipine 5 mg daily. - Required hypertensive in the ED, likely secondary to pain. Will order hydralazine as needed every 8 hours overnight for elevated SBP >185 in the setting of controlled pain. (5) Hypothyroidism: Plan: - Continue levothyroxine 25 mcg daily. Plan - Admit to med telemetry. - SCDs ordered for VTE ppx. Opt for Heparin over Lovenox for VTE PPx due to impending surgery. - DNR/DNI. Patient says she wants to go home with home PT Admission and Anticipated Discharge Date Admission Date: August 11, 2022 Subjective patient seen and examined, feels better after left knee joint aspiration Review of Systems Review of Systems: All systems reviewed are negative, apart from the ones contained in the history. Physical Exam Physical Exam: The patient is awake, alert and oriented 3, well developed and well nourished, normocephalic and atraumatic, lying in bed and in no acute distress. HEENT--PERRL, EOMI, mucous membranes and oropharynx mildly dry Neck--supple. No JVD. No bruits. Thyroid normal, trachea midline, no adenopathy. Heart--normal S1 and S2. No murmurs, rubs or gallops. Lungs--clear bilaterally, no respiratory distress, no accessory muscle use. Abdomen--normal bowel sounds and soft. Mild epigastric and left sided abdominal pain Extremities--no cyanosis or clubbing. No edema. Dermatologic--normal skin turgor, normal color, no abnormal lymph nodes, no rash. Neurologic--cranial nerves II through XII grossly intact. Rheumatologic--normal range of motion. Psychiatric--normal affect. Results & Data Results & Data ([facility]) Vital Signs (Past 12 Hours) Vital Signs Temp Pulse Resp BP Pulse Ox O2 Del Method O2 Flow Rate 08/13/22 12:21 98.4 F 83 19 163/76 H 89 L Nasal Cannula 3 08/13/22 12:04 97 08/13/22 08:00 Nasal Cannula 3 08/13/22 08:11 98.6 F 66 20 133/68 95 Nasal Cannula 3 08/13/22 03:52 100.2 F H 68 18 181/81 H 94 Nasal Cannula 3 PG Care Time/CCT Total # of Minutes Spent Total Time Spent with Patient: Total time spent is greater than 50% in coordination of care (as documented) at patient's floor/unit and/or counseling patient: Coding Level of Care Code 33987 Subseq Hosp Care Lvl 2 Diagnoses Femur fracture, left S72.92XA COVID-19 U07.1 Diabetes E11.9 Hypertension I10 Hypothyroidism E03.9 Time Spent (min) 35
[2022-08-13] MEDS: REMDESIVIR 100 MG in SODIUM CHLORIDE 0.9% 230 ML IV SCH (20:20)
[2022-08-13] MEDS: DOCUSATE SODIUM/SENNA 50/8.6MG TAB PO SCH (20:21)
--- NOTE | 2022-08-13 22:55 | Electrocardiogram Report ---
Test Reason : Blood Pressure : / mmHG Vent. Rate : 089 BPM Atrial Rate : 089 BPM P-R Int : 182 ms QRS Dur : 086 ms QT Int : 380 ms P-R-T Axes : 062 -23 042 degrees QTc Int : 462 ms Sinus rhythm with Premature atrial complexes Inferior infarct , age undetermined Anterior infarct , age undetermined Abnormal ECG No previous ECGs available Confirmed by Jovany Espinosa ([id number]) on 08/13/2022 10:55:11 PM Referred By: REFERRED SELF Confirmed By:Jovany Espinosa
[2022-08-14] MEDS: LEVOTHYROXINE SODIUM 25 MCG TABLET PO SCH (06:03)
[2022-08-14] MEDS: MoRPHine SULFATE IR 15 MG TAB (IMMEDIATE RELEASE) PO PRN ×2 (06:03→20:17)
[2022-08-14 07:07] LABS: Hematocrit (blood only) 36.2 % (34.1-44.9); Hemoglobin 11.5 g/dl (12.0-16.0); Mean Corpuscular Hemoglobin 26.3 pg (25.0-34.0); Mean Corpuscular Hgb Conc 31.8 g/dL (32.0-36.0); Mean Corpuscular Volume 82.8 fL (80.0-100.0); Mean Platelet Volume 10.9 fL (9.4-12.3); Platelet Count 246 K/uL (130-400); RDW Standard Deviation 57.4 fL (36.4-46.3); Red Blood Count 4.37 M/uL (3.93-5.22); White Blood Count 7.64 K/ul (4.8-10.8)
[2022-08-14 07:36] LABS: BUN Creatinine Ratio 32.5 (10-20); Calcium 7.8 mg/dl (8.5-10.1); Creatinine Clr Calc Pharmacy 78.9 ml/min; Est GFR (Non-African American) 92.3 ml/min; Potassium 3.8 mmol/L (3.5-5.1)
[2022-08-14] MEDS: INSULIN ASPART PER UNIT SC SCH ×4 (08:40→22:39)
[2022-08-14] MEDS: amLODIPine BESYLATE 5 MG TAB PO SCH (08:41)
--- NOTE | 2022-08-14 12:51 | Hospitalist Progress Note ---
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 -However, MRI showed that the fracture is old, no evidence of new or acute femur fracture -She had left knee joint aspiration, which revealed gross blood - Tylenol, morphine, heating pad ordered for pain control. Cautious keerthi of opiates given concern for respiratory status with concomitant covid infection. -Will remain non weight bearing on left lower extremity, with use of walker Outpatient follow up wit Ortho in 14 days (2) COVID-19: Plan: -has been feeling ill for a few days - Positive in ED, not vaccinated, not really able to quantify when symptoms began. - Patient was mildly hypoxic prior to pain medication at 90-92%. No underlying COPD however lung disease. She is not tachypneic or dyspneic, not using accessory muscles. -has been started on Remdesivir, today is day 3 - Supportive care. Isolation precautions. - On 2 L NC. (3) Diabetes: Plan: - On Tradjenta at home, will hold during hospitalization. - Accu-Cheks AC at bedtime/Q6h as well n.p.o., SSI only without basal insulin. (4) Hypertension: Plan: - Continue amlodipine 5 mg daily. - Required hypertensive in the ED, likely secondary to pain. Will order hydralazine as needed every 8 hours overnight for elevated SBP >185 in the setting of controlled pain. (5) Hypothyroidism: Plan: - Continue levothyroxine 25 mcg daily. Plan - Admit to med telemetry. - SCDs ordered for VTE ppx. Opt for Heparin over Lovenox for VTE PPx due to impending surgery. - DNR/DNI. Patient says she wants to go home with home PT, however, family unable to take care of her at home. plan is rehab when accepted Admission and Anticipated Discharge Date Admission Date: August 11, 2022 Subjective patient seen and examined, feels better after left knee joint aspiration, co mplains of poor appetite Review of Systems Review of Systems: All systems reviewed are negative, apart from the ones contained in the history. Physical Exam Physical Exam: The patient is awake, alert and oriented 3, well developed and well nourished, normocephalic and atraumatic, lying in bed and in no acute distress. HEENT--PERRL, EOMI, mucous membranes and oropharynx mildly dry Neck--supple. No JVD. No bruits. Thyroid normal, trachea midline, no adenopathy. Heart--normal S1 and S2. No murmurs, rubs or gallops. Lungs--clear bilaterally, no respiratory distress, no accessory muscle use. Abdomen--normal bowel sounds and soft. Mild epigastric and left sided abdominal pain Extremities--no cyanosis or clubbing. No edema. Dermatologic--normal skin turgor, normal color, no abnormal lymph nodes, no rash. Neurologic--cranial nerves II through XII grossly intact. Rheumatologic--normal range of motion. Psychiatric--normal affect. Results & Data Results & Data ([facility]) Vital Signs (Past 12 Hours) Vital Signs Temp Pulse Pulse Resp BP Pulse Ox O2 Del Method 08/14/22 09:40 87 08/14/22 08:00 Nasal Cannula 08/14/22 05:57 97.9 F 81 20 168/77 H 97 Nasal Cannula 08/14/22 02:03 74 O2 Flow Rate 08/14/22 09:40 08/14/22 08:00 3 08/14/22 05:57 3 08/14/22 02:03 PG Care Time/CCT Total # of Minutes Spent Total Time Spent with Patient: Total time spent is greater than 50% in coordination of care (as documented) at patient's floor/unit and/or counseling patient: Coding Level of Care Code 29725 Subseq Hosp Care Lvl 2 Diagnoses Femur fracture, left S72.92XA COVID-19 U07.1 Diabetes E11.9 Hypertension I10 Hypothyroidism E03.9 Time Spent (min) 35
[2022-08-14] MEDS: DOCUSATE SODIUM/SENNA 50/8.6MG TAB PO SCH (20:00)
[2022-08-14] MEDS: REMDESIVIR 100 MG in SODIUM CHLORIDE 0.9% 230 ML IV SCH (20:18)
[2022-08-15] MEDS: LEVOTHYROXINE SODIUM 25 MCG TABLET PO SCH (06:05)
[2022-08-15 07:43] LABS: Creatinine Clr Calc Pharmacy 76.9 ml/min; Est GFR (African American) 106.2 ml/min; Est GFR (Non-African American) 91.6 ml/min
[2022-08-15] MEDS: amLODIPine BESYLATE 5 MG TAB PO SCH (07:45)
[2022-08-15] MEDS: INSULIN ASPART PER UNIT SC SCH ×4 (08:41→21:04)
--- NOTE | 2022-08-15 13:13 | Hospitalist Progress Note ---
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 -However, MRI showed that the fracture is old, no evidence of new or acute femur fracture -She had left knee joint aspiration, which revealed gross blood - Tylenol, morphine, heating pad ordered for pain control. Cautious keerthi of opiates given concern for respiratory status with concomitant covid infection. -Will remain non weight bearing on left lower extremity, with use of walker Outpatient follow up wit Ortho in 14 days (2) COVID-19: Plan: -has been feeling ill for a few days - Positive in ED, not vaccinated, not really able to quantify when symptoms began. - Patient was mildly hypoxic prior to pain medication at 90-92%. No underlying COPD however lung disease. She is not tachypneic or dyspneic, not using accessory muscles. -has been started on Remdesivir, today is day 4 - Supportive care. Isolation precautions. - On 2 L NC. (3) Appetite loss: Plan: patient has poor appetite has not been eating regular food however, willing to take nutritional supplements (4) Diabetes: Plan: - On Tradjenta at home, will hold during hospitalization. - Accu-Cheks AC at bedtime/Q6h as well n.p.o., SSI only without basal insulin. (5) Hypertension: Plan: - Continue amlodipine 5 mg daily. - Required hypertensive in the ED, likely secondary to pain. Will order hydralazine as needed every 8 hours overnight for elevated SBP >185 in the setting of controlled pain. (6) Hypothyroidism: Plan: - Continue levothyroxine 25 mcg daily. Plan - Admit to med telemetry. - SCDs ordered for VTE ppx. Opt for Heparin over Lovenox for VTE PPx due to impending surgery. - DNR/DNI. Patient says she wants to go home with home PT, however, family unable to take care of her at home. plan is rehab when accepted, however, given her COVID status, no facility may be willing to accept her before 08/21 Admission and Anticipated Discharge Date Admission Date: August 11, 2022 Subjective patient seen and examined, having poor appetite, getting weaker Review of Systems Review of Systems: All systems reviewed are negative, apart from the ones contained in the history. Physical Exam Physical Exam: The patient is awake, alert and oriented 3, well developed and well nourished, normocephalic and atraumatic, lying in bed and in no acute distress. HEENT--PERRL, EOMI, mucous membranes and oropharynx mildly dry Neck--supple. No JVD. No bruits. Thyroid normal, trachea midline, no adenopathy. Heart--normal S1 and S2. No murmurs, rubs or gallops. Lungs--clear bilaterally, no respiratory distress, no accessory muscle use. Abdomen--normal bowel sounds and soft. Mild epigastric and left sided abdominal pain Extremities--no cyanosis or clubbing. No edema. Dermatologic--normal skin turgor, normal color, no abnormal lymph nodes, no rash. Neurologic--cranial nerves II through XII grossly intact. Rheumatologic--normal range of motion. Psychiatric--normal affect. Results & Data Results & Data ([facility]) Vital Signs (Past 12 Hours) Vital Signs Temp Pulse Pulse Resp BP Pulse Ox O2 Del Method 08/15/22 11:12 98.4 F 85 18 153/78 H 97 Nasal Cannula 08/15/22 06:12 75 08/15/22 07:00 98.4 F 70 16 150/66 H 96 Nasal Cannula 08/15/22 07:00 Nasal Cannula O2 Flow Rate 08/15/22 11:12 2 08/15/22 06:12 08/15/22 07:00 3 08/15/22 07:00 3 PG Care Time/CCT Total # of Minutes Spent Total Time Spent with Patient: Total time spent is greater than 50% in coordination of care (as documented) at patient's floor/unit and/or counseling patient: Coding Level of Care Code 08257 Subseq Hosp Care Lvl 2 Diagnoses Femur fracture, left S72.92XA COVID-19 U07.1 Appetite loss R63.0 Diabetes E11.9 Hypertension I10 Hypothyroidism E03.9 Time Spent (min) 35
[2022-08-15] MEDS: MoRPHine SULFATE IR 15 MG TAB (IMMEDIATE RELEASE) PO PRN (14:14)
[2022-08-15] MEDS: REMDESIVIR 100 MG in SODIUM CHLORIDE 0.9% 230 ML IV SCH (20:57)
[2022-08-15] MEDS: DOCUSATE SODIUM/SENNA 50/8.6MG TAB PO SCH (21:05)
[2022-08-16] MEDS: MoRPHine SULFATE IR 15 MG TAB (IMMEDIATE RELEASE) PO PRN (05:56)
[2022-08-16] MEDS: LEVOTHYROXINE SODIUM 25 MCG TABLET PO SCH (05:56)
[2022-08-16] MEDS: amLODIPine BESYLATE 5 MG TAB PO SCH (07:43)
[2022-08-16 08:42] LABS: Hematocrit (blood only) 36.5 % (34.1-44.9); Hemoglobin 11.8 g/dl (12.0-16.0); Mean Corpuscular Hemoglobin 26.5 pg (25.0-34.0); Mean Corpuscular Hgb Conc 32.3 g/dL (32.0-36.0); Mean Platelet Volume 10.6 fL (9.4-12.3); Platelet Count 330 K/uL (130-400); RDW Coefficient of Variation 18.9 % (11.5-14.5); RDW Standard Deviation 56.4 fL (36.4-46.3); Red Blood Count 4.45 M/uL (3.93-5.22); White Blood Count 9.21 K/ul (4.8-10.8)
[2022-08-16] MEDS: INSULIN ASPART PER UNIT SC SCH ×4 (09:10→21:03)
[2022-08-16 09:13] LABS: BUN Creatinine Ratio 51.2 (10-20); Creatinine Clr Calc Pharmacy 76.9 ml/min; Est GFR (African American) 106.2 ml/min; Est GFR (Non-African American) 91.6 ml/min; Potassium 4.1 mmol/L (3.5-5.1)
[2022-08-16] MEDS: SODIUM CHLORIDE 0.9% 1000ML 1,000 ML IV SCH (14:31)
--- NOTE | 2022-08-16 14:37 | Hospitalist Progress Note ---
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 -However, MRI showed that the fracture is old, no evidence of new or acute femur fracture -She had left knee joint aspiration, which revealed gross blood - Tylenol, morphine, heating pad ordered for pain control. Cautious keerthi of opiates given concern for respiratory status with concomitant covid infection. -Will remain non weight bearing on left lower extremity, with use of walker Outpatient follow up wit Ortho in 14 days (2) COVID-19: Plan: -has been feeling ill for a few days - Positive in ED, not vaccinated, not really able to quantify when symptoms began. - Patient was mildly hypoxic prior to pain medication at 90-92%. No underlying COPD however lung disease. She is not tachypneic or dyspneic, not using accessory muscles. -has completed a course of Remdesivir - Supportive care. Isolation precautions. - On 2 L NC. (3) Appetite loss: Plan: patient has poor appetite has not been eating regular food however, willing to take nutritional supplements will also start gentle IV Hydration with NS 80cc/hr (4) Diabetes: Plan: - On Tradjenta at home, will hold during hospitalization. - Accu-Cheks AC at bedtime/Q6h as well n.p.o., SSI only without basal insulin. (5) Hypertension: Plan: - Continue amlodipine 5 mg daily. - Required hypertensive in the ED, likely secondary to pain. Will order hyd ralazine as needed every 8 hours overnight for elevated SBP >185 in the setting of controlled pain. (6) Hypothyroidism: Plan: - Continue levothyroxine 25 mcg daily. Plan - SCDs ordered for VTE ppx. Opt for Heparin over Lovenox for VTE PPx due to impending surgery. - DNR/DNI. Patient says she wants to go home with home PT, however, family unable to take care of her at home. plan is rehab when accepted, however, given her COVID status, no facility may be willing to accept her before 08/21 Admission and Anticipated Discharge Date Admission Date: August 11, 2022 Subjective patient seen and examined, having poor appetite, getting weaker Review of Systems Review of Systems: All systems reviewed are negative, apart from the ones contained in the history. Physical Exam Physical Exam: The patient is awake, alert and oriented 3, well developed and well nourished, normocephalic and atraumatic, lying in bed and in no acute distress. HEENT--PERRL, EOMI, mucous membranes and oropharynx mildly dry Neck--supple. No JVD. No bruits. Thyroid normal, trachea midline, no adenopathy. Heart--normal S1 and S2. No murmurs, rubs or gallops. Lungs--clear bilaterally, no respiratory distress, no accessory muscle use. Abdomen--normal bowel sounds and soft. Mild epigastric and left sided abdominal pain Extremities--no cyanosis or clubbing. No edema. Dermatologic--normal skin turgor, normal color, no abnormal lymph nodes, no rash. Neurologic--cranial nerves II through XII grossly intact. Rheumatologic--normal range of motion. Psychiatric--normal affect. Results & Data Results & Data ([facility]) Vital Signs (Past 12 Hours) Vital Signs Temp Pulse Pulse Resp BP Pulse Ox O2 Del Method 08/16/22 12:15 98.2 F 89 19 155/74 H 92 Nasal Cannula 08/16/22 08:00 Nasal Cannula 08/16/22 07:41 99.0 F 87 16 160/72 H 93 Nasal Cannula 08/16/22 07:14 90 08/16/22 03:00 97.7 F 96 H 16 172/79 H 92 Nasal Cannula O2 Flow Rate 08/16/22 12:15 3 08/16/22 08:00 3 08/16/22 07:41 3 08/16/22 07:14 08/16/22 03:00 3 PG Care Time/CCT Total # of Minutes Spent Total Time Spent with Patient: Total time spent is greater than 50% in coordination of care (as documented) at patient's floor/unit and/or counseling patient: Coding Level of Care Code 47483 Subseq Hosp Care Lvl 2 Diagnoses Femur fracture, left S72.92XA COVID-19 U07.1 Appetite loss R63.0 Diabetes E11.9 Hypertension I10 Hypothyroidism E03.9 Time Spent (min) 35
[2022-08-16] MEDS: ONDANSETRON INJ 2 MG/ML 2 ML VIAL IV PRN (19:46)
[2022-08-16] MEDS: DOCUSATE SODIUM/SENNA 50/8.6MG TAB PO SCH (20:53)
[2022-08-17] MEDS: SODIUM CHLORIDE 0.9% 1000ML 1,000 ML IV SCH ×2 (03:12→16:19)
[2022-08-17] MEDS: LEVOTHYROXINE SODIUM 25 MCG TABLET PO SCH (05:30)
[2022-08-17] MEDS: INSULIN ASPART PER UNIT SC SCH ×4 (08:17→20:56)
[2022-08-17] MEDS: amLODIPine BESYLATE 5 MG TAB PO SCH (08:19)
[2022-08-17 09:29] LABS: Hematocrit (blood only) 34.9 % (34.1-44.9); Hemoglobin 11.2 g/dl (12.0-16.0); Mean Corpuscular Hemoglobin 26.4 pg (25.0-34.0); Mean Corpuscular Hgb Conc 32.1 g/dL (32.0-36.0); Mean Corpuscular Volume 82.3 fL (80.0-100.0); Mean Platelet Volume 11.3 fL (9.4-12.3); Platelet Count 413 K/uL (130-400); RDW Coefficient of Variation 18.9 % (11.5-14.5); RDW Standard Deviation 56.7 fL (36.4-46.3); Red Blood Count 4.24 M/uL (3.93-5.22); White Blood Count 10.96 K/ul (4.8-10.8)
[2022-08-17 09:56] LABS: BUN Creatinine Ratio 54.8 (10-20); Calcium 8.3 mg/dl (8.5-10.1); Creatinine Clr Calc Pharmacy 81.6 ml/min; Est GFR (African American) 105.3 ml/min; Est GFR (Non-African American) 90.9 ml/min; Potassium 3.9 mmol/L (3.5-5.1)
--- NOTE | 2022-08-17 13:16 | Hospitalist Progress Note ---
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 -However, MRI showed that the fracture is old, no evidence of new or acute femur fracture -She had left knee joint aspiration, which revealed gross blood - Tylenol, morphine, heating pad ordered for pain control. Cautious keerthi of opiates given concern for respiratory status with concomitant covid infection. -Will remain non weight bearing on left lower extremity, with use of walker -Outpatient follow up with Ortho in 14 days (2) COVID-19: Plan: - Positive in ED, not vaccinated, not really able to quantify when symptoms began. - Patient was mildly hypoxic prior to pain medication at 90-92%. No underlying COPD however lung disease. She is not tachypneic or dyspneic, not using accessory muscles. -has completed a course of Remdesivir - Supportive care. Isolation precautions. - On 2 L NC. (3) Appetite loss: Plan: patient has poor appetite has not been eating regular food however, willing to take nutritional supplements will also start gentle IV Hydration with NS 80cc/hr (4) Diabetes: Plan: - On Tradjenta at home, will hold during hospitalization. - Accu-Cheks AC at bedtime/Q6h as well n.p.o., SSI only without basal insulin. (5) Hypertension: Plan: - Continue amlodipine 5 mg daily. - Required hypertensive in the ED, likely secondary to pain. Will order hydralazine as needed every 8 hours overnight for elevated SBP >185 in the setting of controlled pain. (6) Hypothyroidism: Plan: - Continue levothyroxine 25 mcg daily. Plan - SCDs ordered for VTE ppx. Opt for Heparin over Lovenox for VTE PPx due to impending surgery. - DNR/DNI. Patient says she wants to go home with home PT, however, family unable to take care of her at home. plan is rehab when accepted, however, given her COVID status, no facility may be willing to accept her before 08/21 Admission and Anticipated Discharge Date Admission Date: August 11, 2022 Subjective patient seen and examined, having poor appetite, getting weaker, driking only supplements Review of Systems Review of Systems: All systems reviewed are negative, apart from the ones contained in the history. Physical Exam Physical Exam: The patient is awake, alert and oriented 3, well developed and well nourished, normocephalic and atraumatic, lying in bed and in no acute distress. HEENT--PERRL, EOMI, mucous membranes and oropharynx mildly dry Neck--supple. No JVD. No bruits. Thyroid normal, trachea midline, no adenopathy. Heart--normal S1 and S2. No murmurs, rubs or gallops. Lungs--clear bilaterally, no respiratory distress, no accessory muscle use. Abdomen--normal bowel sounds and soft. Mild epigastric and left sided abdominal pain Extremities--no cyanosis or clubbing. No edema. Dermatologic--normal skin turgor, normal color, no abnormal lymph nodes, no rash. Neurologic--cranial nerves II through XII grossly intact. Rheumatologic--normal range of motion. Psychiatric--normal affect. Results & Data Results & Data ([facility]) Vital Signs (Past 12 Hours) Vital Signs Temp Pulse Pulse Resp BP Pulse Ox O2 Del Method 08/17/22 11:52 97.0 F L 105 H 18 148/87 H 91 Nasal Cannula 08/17/22 11:28 Nasal Cannula 08/17/22 07:54 97.9 F 64 18 160/79 H 95 Nasal Cannula 08/17/22 07:26 89 08/17/22 03:00 97.5 F L 81 20 158/77 H 94 Nasal Cannula O2 Flow Rate 08/17/22 11:52 2 08/17/22 11:28 3 08/17/22 07:54 2 08/17/22 07:26 08/17/22 03:00 3 PG Care Time/CCT Total # of Minutes Spent Total Time Spent with Patient: Total time spent is greater than 50% in coordination of care (as documented) at patient's floor/unit and/or counseling patient: Coding Level of Care Code 40070 Subseq Hosp Care Lvl 2 Diagnoses Femur fracture, left S72.92XA COVID-19 U07.1 Appetite loss R63.0 Diabetes E11.9 Hypertension I10 Hypothyroidism E03.9 Time Spent (min) 35
[2022-08-17] MEDS: MoRPHine SULFATE IR 15 MG TAB (IMMEDIATE RELEASE) PO PRN (14:45)
[2022-08-17] MEDS: DOCUSATE SODIUM/SENNA 50/8.6MG TAB PO SCH (21:40)
[2022-08-18] MEDS: SODIUM CHLORIDE 0.9% 1000ML 1,000 ML IV SCH (04:11)
[2022-08-18] MEDS: LEVOTHYROXINE SODIUM 25 MCG TABLET PO SCH (06:12)
[2022-08-18] MEDS: INSULIN ASPART PER UNIT SC SCH ×4 (08:06→20:34)
[2022-08-18] MEDS: MoRPHine SULFATE IR 15 MG TAB (IMMEDIATE RELEASE) PO PRN ×2 (09:03→18:00)
[2022-08-18] MEDS: amLODIPine BESYLATE 5 MG TAB PO SCH (09:04)
[2022-08-18] MEDS ORDERED: bisacodyL 10 MG SUPP PR STA (12:05)
--- NOTE | 2022-08-18 12:39 | XRay Report ---
XR chest 1V portable CLINICAL HISTORY: sob TECHNIQUE: Single frontal radiograph of the chest was obtained. Comparison: Comparison is made to chest radiograph 08/11/2022 FINDINGS: No lines and tubes are seen. Cardiomegaly is noted. The aortic arch is calcified. There is prominence and cephalization of the vasculature with Hung B lines seen. The bilateral lower lung airspace opa cities are seen. Small bilateral pleural effusions are seen. IMPRESSION: 1. Moderate pulmonary edema. Small bilateral pleural effusions. Stable cardiomegaly. 2. Bilateral lower lung predominant airspace opacity may represent atelectasis, aspiration, pneumoni a, and/or alveolar edema. ACT 112: Negative or not required by law. Electronically signed by: Raffi Amador M.D. 08/18/2022 12:36 PM
[2022-08-18] MEDS: POLYETHYLENE (MIRALAX) 17 GM PACK PO SCH (13:02)
--- NOTE | 2022-08-18 13:53 | Hospitalist Progress Note ---
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 -However, MRI showed that the fracture is old, no evidence of new or acute femur fracture -She had left knee joint aspiration, which revealed gross blood - Tylenol, morphine, heating pad ordered for pain control. Cautious keerthi of opiates given concern for respiratory status with concomitant covid infection. -Will remain non weight bearing on left lower extremity, with use of walker -Outpatient follow up with Ortho in 14 days (2) COVID-19: Plan: - Positive in ED, not vaccinated, not really able to quantify when symptoms began. - Patient was mildly hypoxic prior to pain medication at 90-92%. No underlying COPD however lung disease. She is not tachypneic or dyspneic, not using accessory muscles. -has completed a course of Remdesivir - Supportive care. Isolation precautions. - On 2 L NC. (3) Pulmonary congestion: Plan: Mild congestive changes on x ray will discontinue IV fluids give 1 dose of lasix 40mg Empirically cover with Zosyn in case its PNA instead of pulmo congestion obtain cultures (4) Appetite loss: Plan: patient has poor appetite has not been eating regular food however, willing to take nutritional supplements will also start gentle IV Hydration with NS 80cc/hr (5) Diabetes: Plan: - On Tradjenta at home, will hold during hospitalization. - Accu-Cheks AC at bedtime/Q6h as well n.p.o., SSI only without basal insulin. (6) Hypertension: Plan: - Continue amlodipine 5 mg daily. - Required hypertensive in the ED, likely secondary to pain. Will order hydralazine as needed every 8 hours overnight for elevated SBP >185 in the setting of controlled pain. (7) Hypothyroidism: Plan: - Continue levothyroxine 25 mcg daily. Plan - SCDs ordered for VTE ppx. Opt for Heparin over Lovenox for VTE PPx due to impending surgery. - DNR/DNI. Patient says she wants to go home with home PT, however, family unable to take care of her at home. plan is rehab when accepted, however, given her COVID sta tus, no facility may be willing to accept her before 08/21 Admission and Anticipated Discharge Date Admission Date: August 11, 2022 Subjective patient seen and examined, having poor appetite, getting weaker, driking only supplements Review of Systems Review of Systems: All systems reviewed are negative, apart from the ones contained in the history. Physical Exam Physical Exam: The patient is awake, alert and oriented 3, well developed and well nourished, normocephalic and atraumatic, lying in bed and in no acute distress. HEENT--PERRL, EOMI, mucous membranes and oropharynx mildly dry Neck--supple. No JVD. No bruits. Thyroid normal, trachea midline, no adenopathy. Heart--normal S1 and S2. No murmurs, rubs or gallops. Lungs--reduced air entry, some crackles Abdomen--normal bowel sounds and soft. Mild epigastric and left sided abdominal pain Extremities--no cyanosis or clubbing. No edema. Dermatologic--normal skin turgor, normal color, no abnormal lymph nodes, no rash. Neurologic--cranial nerves II through XII grossly intact. Rheumatologic--normal range of motion. Psychiatric--normal affect. Results & Data Results & Data ([facility]) Vital Signs (Past 12 Hours) Vital Signs Temp Pulse Pulse Resp BP Pulse Ox O2 Del Method 08/18/22 11:19 Nasal Cannula 08/18/22 08:25 98.2 F 108 H 18 155/74 H 94 Nasal Cannula 08/18/22 07:09 68 08/18/22 02:23 97.9 F 90 20 165/79 H 95 Nasal Cannula O2 Flow Rate 08/18/22 11:19 2 08/18/22 08:25 3 08/18/22 07:09 08/18/22 02:23 3 PG Care Time/CCT Total # of Minutes Spent Total Time Spent with Patient: Total time spent is greater than 50% in coordination of care (as documented) at patient's floor/unit and/or counseling patient: Coding Level of Care Code 17050 Subseq Hosp Care Lvl 2 Diagnoses Femur fracture, left S72.92XA COVID-19 U07.1 Pulmonary congestion R09.89 Appetite loss R63.0 Diabetes E11.9 Hypertension I10 Hypothyroidism E03.9 Time Spent (min) 35
[2022-08-18] MEDS ORDERED: FUROSEMIDE 40 MG/4 ML VIAL IV ONE (14:00)
[2022-08-18 14:15] LABS: BUN Creatinine Ratio 65.7 (10-20); Calcium 7.8 mg/dl (8.5-10.1); Creatinine Clr Calc Pharmacy 97.8 ml/min; Est GFR (African American) 111.8 ml/min; Est GFR (Non-African American) 96.5 ml/min; Potassium 3.8 mmol/L (3.5-5.1)
[2022-08-18] MEDS: PIPERACILLIN/TAZOBACTAM 3.375 GM in DEXTROSE 5% 100 ML IV SCH ×2 (14:31→20:58)
[2022-08-18 14:44] LABS: Hematocrit (blood only) 33.7 % (34.1-44.9); Hemoglobin 10.7 g/dl (12.0-16.0); Mean Corpuscular Hemoglobin 26.4 pg (25.0-34.0); Mean Corpuscular Hgb Conc 31.8 g/dL (32.0-36.0); Mean Corpuscular Volume 83.2 fL (80.0-100.0); Mean Platelet Volume 10.5 fL (9.4-12.3); Platelet Count 434 K/uL (130-400); RDW Coefficient of Variation 18.8 % (11.5-14.5); RDW Standard Deviation 57.1 fL (36.4-46.3); Red Blood Count 4.05 M/uL (3.93-5.22); White Blood Count 11.17 K/ul (4.8-10.8)
[2022-08-18] MEDS: DOCUSATE SODIUM/SENNA 50/8.6MG TAB PO SCH (20:58)
[2022-08-19] MEDS: PIPERACILLIN/TAZOBACTAM 3.375 GM in DEXTROSE 5% 100 ML IV SCH ×3 (05:23→21:30)
[2022-08-19] MEDS: LEVOTHYROXINE SODIUM 25 MCG TABLET PO SCH (05:23)
[2022-08-19] MEDS: POLYETHYLENE (MIRALAX) 17 GM PACK PO SCH (07:52)
[2022-08-19] MEDS: amLODIPine BESYLATE 5 MG TAB PO SCH (07:52)
[2022-08-19] MEDS: INSULIN ASPART PER UNIT SC SCH ×4 (08:38→22:13)
[2022-08-19] MEDS ORDERED: FUROSEMIDE 40 MG/4 ML VIAL IV ONE (12:59)
--- NOTE | 2022-08-19 13:13 | Hospitalist Progress Note ---
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 -However, MRI showed that the fracture is old, no evidence of new or acute femur fracture -She had left knee joint aspiration, which revealed gross blood - Tylenol, morphine, heating pad ordered for pain control. Cautious keerthi of opiates given concern for respiratory status with concomitant covid infection. -Will remain non weight bearing on left lower extremity, with use of walker -Outpatient follow up with Ortho in 14 days (2) COVID-19: Plan: - Positive in ED, not vaccinated, not really able to quantify when symptoms began. - Patient was mildly hypoxic prior to pain medication at 90-92%. No underlying COPD however lung disease. She is not tachypneic or dyspneic, not using accessory muscles. -has completed a course of Remdesivir - Supportive care. Isolation precautions. - On 2 L NC. (3) Pulmonary congestion: Plan: Mild congestive changes on x ray will discontinue IV fluids give 1 dose of lasix 40mg Empirically cover with Zosyn in case its PNA instead of pulmo congestion obtain cultures (4) Appetite loss: Plan: patient has poor appetite has not been eating regular food however, willing to take nutritional supplements She is getting weaker and weaker she often needs feeding assistance (5) Diabetes: Plan: - On Tradjenta at home, will hold during hospitalization. - Accu-Cheks AC at bedtime/Q6h as well n.p.o., SSI only without basal insulin. (6) Hypertension: Plan: - Continue amlodipine 5 mg daily. - Required hypertensive in the ED, likely secondary to pain. Will order hydralazine as needed every 8 hours overnight for elevated SBP >185 in the setting of controlled pain. (7) Hypothyroidism: Plan: - Continue levothyroxine 25 mcg daily. (8) Poor appetite: Plan - SCDs ordered for VTE ppx. Opt for Heparin over Lovenox for VTE PPx due to impending surgery. - DNR/DNI. Patient says she wants to go home with home PT, however, family unable to take care of her at home. plan is rehab when accepted, however, given her COVID status, no facility may be willing to accept her before 08/21 Admission and Anticipated Discharge Date Admission Date: August 11, 2022 Subjective patient seen and examined, having poor appetite, getting weaker, driking only supplements Review of Systems Review of Systems: All systems reviewed are negative, apart from the ones contained in the history. Physical Exam Physical Exam: The patient is awake, alert and oriented 3, well developed and well nourished, normocephalic and atraumatic, lying in bed and in no acute distress. HEENT--PERRL, EOMI, mucous membranes and oropharynx mildly dry Neck--supple. No JVD. No bruits. Thyroid normal, trachea midline, no adenopathy. Heart--normal S1 and S2. No murmurs, rubs or gallops. Lungs--reduced air entry, some crackles Abdomen--normal bowel sounds and soft. Mild epigastric and left sided abdominal pain Extremities--no cyanosis or clubbing. No edema. Dermatologic--normal skin turgor, normal color, no abnormal lymph nodes, no rash. Neurologic--cranial nerves II through XII grossly intact. Rheumatologic--normal range of motion. Psychiatric--normal affect. Results & Data Results & Data ([facility]) Vital Signs (Past 12 Hours) Vital Signs Temp Pulse Pulse Resp BP Pulse Ox O2 Del Method 08/19/22 11:36 98.4 F 79 18 140/79 96 Nasal Cannula 08/19/22 08:00 Nasal Cannula 08/19/22 07:00 97.5 F L 87 16 145/77 H 97 Nasal Cannula 08/19/22 07:17 65 08/19/22 03:00 98.1 F 65 18 138/77 97 Nasal Cannula O2 Flow Rate 08/19/22 11:36 3 08/19/22 08:00 2 08/19/22 07:00 2 08/19/22 07:17 08/19/22 03:00 2 PG Care Time/CCT Total # of Minutes Spent Total Time Spent with Patient: Total time spent is greater than 50% in coordination of care (as documented) at patient's floor/unit and/or counseling patient: Coding Level of Care Code 06489 Subseq Hosp Care Lvl 2 Diagnoses Femur fracture, left S72.92XA COVID-19 U07.1 Pulmonary congestion R09.89 Appetite loss R63.0 Diabetes E11.9 Hypertension I10 Hypothyroidism E03.9 Poor appetite R63.0 Time Spent (min) 35
[2022-08-19] MEDS: MoRPHine SULFATE IR 15 MG TAB (IMMEDIATE RELEASE) PO PRN ×2 (13:29→21:28)
[2022-08-19 14:27] LABS: Appearance Urine Clear (Clear); Bacteria Urine Automated Negative (Negative); Bilirubin Urine Negative (Negative); Blood Urine 2+ (Negative); Color Urine Yellow; Epithelial Cell Urine Auto 20-30 /lpf (0-5); Glucose Urine UA Negative (Negative); Ketones Urine Negative (Negative); Leukocyte Esterase Urine Negative (Negative); Nitrite Urine Negative (Negative); Protein Urine 1+ (Negative); Specific Gravity Urine 1.023 (1.000-1.030); Urobilinogen Urine Positive (Negative)
[2022-08-19] MEDS: DOCUSATE SODIUM/SENNA 50/8.6MG TAB PO SCH (21:28)
[2022-08-20] MEDS: PIPERACILLIN/TAZOBACTAM 3.375 GM in DEXTROSE 5% 100 ML IV SCH (05:31)
[2022-08-20] MEDS: LEVOTHYROXINE SODIUM 25 MCG TABLET PO SCH (05:35)
[2022-08-20] MEDS: amLODIPine BESYLATE 5 MG TAB PO SCH (08:30)
[2022-08-20] MEDS: INSULIN ASPART PER UNIT SC SCH ×2 (08:30→11:41)
[2022-08-20] MEDS: POLYETHYLENE (MIRALAX) 17 GM PACK PO SCH (08:31)
[2022-08-20 09:08] LABS: Hematocrit (blood only) 31.3 % (34.1-44.9); Hemoglobin 10.4 g/dl (12.0-16.0); Mean Corpuscular Hemoglobin 26.6 pg (25.0-34.0); Mean Corpuscular Hgb Conc 33.2 g/dL (32.0-36.0); Mean Corpuscular Volume 80.1 fL (80.0-100.0); Mean Platelet Volume 10.4 fL (9.4-12.3); Platelet Count 512 K/uL (130-400); RDW Coefficient of Variation 18.5 % (11.5-14.5); RDW Standard Deviation 53.8 fL (36.4-46.3); Red Blood Count 3.91 M/uL (3.93-5.22); White Blood Count 11.99 K/ul (4.8-10.8)
[2022-08-20 09:29] LABS: BUN Creatinine Ratio 39.1 (10-20); Calcium 7.9 mg/dl (8.5-10.1); Creatinine Clr Calc Pharmacy 68.6 ml/min; Est GFR (African American) 102.2 ml/min; Est GFR (Non-African American) 88.2 ml/min; Potassium 3.3 mmol/L (3.5-5.1)
--- NOTE | 2022-08-20 11:16 | Discharge Summary ---
Date of Service August 20, 2022 Admission HPI Per Admitting Provider Jazzy Maloney is an 87-year-old female with past medical history significant for hypertension, hyperlipidemia, diabetes, hypothyroidism, and urinary incontinence who is presenting today from home after a fall. Patient was up ambulating around 5 AM this morning when she states her legs got weak and gave out from under her causing her to fall landing on her side and head. She lives with her daughter, who with the assistance of her was able to get the patient back in bed and cleaned off her scalp which was bleeding from where she had it. She denies loss of consciousness, denies any chest pain, palpitations, shortness of breath preceding the fall. She not exactly able to explain how the fall happened but just says she felt weak. Since the fall she has not been able to ambulate and has significant pain at her left hip and knee, as well as the right side of her head. EMS was called to her home so that she may be transported to the ED for further evaluation pain control. Patient also complai ns of feeling generally "unwell" for couple days stating she has been tired and not wanting to eat much and believes her daughter took her temperature at home and told her she had a fever. I also spoke to daughter, Netta, on the phone this evening who states that her mother had been eating well and no complaints of feeling sick this week. She did have 1 episode of constipation which was alleviated with a laxative. No one else is sick at home. Left femur x-ray reveals an impacted subcapital fracture left proximal femur and a large joint effusion of the left knee as well as advanced arthritic changes. There is no fracture seen in the left pelvis, hip, tibia or fibula. C-spine negative for fracture or subluxation. There is mild age-indeterminate superior endplate compression deformities at T2 and T3, likely chronic. Head CT negative for hemorrhage, mass-effect, or acute ischemia. On presentation, patient is hypertensive with BP 180s over 100, HR 90s, oxygen 90 to 92% on room air. Did desat down to high 80s after receiving morphine and therefore was placed on 2 L NC. She is afebrile. Labs largely unremarkable. On routine admission testing, patient was positive for COVID-19. Principal Diagnosis subcapital fracture left proximal femur and a large joint effusion of the left knee Discharge Exam The patient is awake, alert and oriented 3, well developed and well nourished, normocephalic and atraumatic, lying in bed and in no acute distress. HEENT--PERRL, EOMI, mucous membranes and oropharynx mildly dry Neck--supple. No JVD. No bruits. Thyroid normal, trachea midline, no adenopathy. Heart--normal S1 and S2. No murmurs, rubs or gallops. Lungs--reduced air entry, some crackles Abdomen--normal bowel sounds and soft. Mild epigastric and left sided abdominal pain Extremities--no cyanosis or clubbing. No edema. Dermatologic--normal skin turgor, normal color, no abnormal lymph nodes, no rash. Neurologic--cranial nerves II through XII grossly intact. Rheumatologic--normal range of motion. Psychiatric--normal affect. Discharge Data Allergies Allergy/AdvReac Type Severity Reaction Status Date / Time No Known Allergies Allergy Verified 08/11/22 19:26 Consultations 08/11/22 19:00 Consult Orthopedic Surgery Stat 08/11/22 19:09 ED Decision to Admit Stat 08/11/22 21:41 Consult Anesthesiology Routine Consult Orthopedic Surgery Routine Procedures Performed Operation Date: 08/12/22 08:00 <No data on this case meets the specified criteria> Ordered Studies 08/11/22 18:15 CT cervical spine wo con Stat CT head/brain wo con Stat 08/11/22 18:34 CT pelvis wo con Stat 08/12/22 10:35 CT knee LT wo con Stat 08/12/22 10:48 MRI Hip [MR hip LT wo con] Stat Hospital Course (1) Femur fracture, left: - Left femur x-ray was performed and revealed an impacted subcapital fracture left proximal femur and a large joint effusion of the left knee as well as 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 -However, MRI showed that the fracture is old, no evidence of new or acute femur fracture -She had left knee joint aspiration, which revealed gross blood - Tylenol, morphine, heating pad ordered for pain control. Cautious keerthi of opiates given concern for respiratory status with concomitant covid infection. -Will remain non weight bearing on left lower extremity, with use of walker -Outpatient follow up with Ortho in 14 days (2) COVID-19: - Positive in ED, not vaccinated, not really able to quantify when symptoms began. - Patient was mildly hypoxic prior to pain medication at 90-92%. No underlying COPD however lung disease. She is not tachypneic or dyspneic, not using accessory muscles. -has completed a course of Remdesivir - Supportive care. Isolation precautions. - On 2 L NC. (3) Pulmonary congestion: Mild congestive changes on x ray will discontinue IV fluids give 1 dose of lasix 40mg Empirically cover with Zosyn in case its PNA instead of pulmo congestion obtain cultures (4) Appetite loss: patient has poor appetite and now severely deconditioned has not been eating regular food however, willing to take nutritional supplements She is getting weaker and weaker she often needs feeding assistance (5) Diabetes: - On Tradjenta at home, will hold during hospitalization. - Accu-Cheks AC at bedtime/Q6h as well n.p.o., SSI only without basal insulin. (6) Hypertension: - Continue amlodipine 5 mg daily. - Required hypertensive in the ED, likely secondary to pain. Will order hydralazine as needed every 8 hours overnight for elevated SBP >185 in the setting of controlled pain. (7) Hypothyroidism: - Continue levothyroxine 25 mcg daily. (8) Poor appetite: Plan - SCDs ordered for VTE ppx. Opt for Heparin over Lovenox for VTE PPx due to impending surgery. - DNR/DNI. d/c to SNF Total Time Total Time Spent Total Time Spent (In Minutes): 35 Discharge Plan Discharge Items Patient Disposition: Transfer Longterm Fac Reason For Visit: LEFT FEMUR FRACTURE Discharge Diagnosis: subcapital fracture left proximal femur and a large joint effusion of the left knee; Covid + Condition on Discharge: Fair Activity: As commented below Lifting: None Bathing: Keep incision dry Bathing Comment: May shower tomorrow Sexual Activity: Wait until after follow-up appointment Exercise/Sports: Wait until after follow-up appointment Driving/Machine Use: No driving until cleared by supplier specialist Weightbearing: Left non-weightbearing Weightbearing Comment: with walker assistance Non-emergency contact: Primary Care Provider Call non-emergency contact if: you have any medication questions, your pain is not controlled, your wound has increased drainage and your wound pain has increased Follow-up/Referrals: PCP,NO [Primary Care Provider] - Diet: Heart Healthy Addtl Attending Provider Instructions: Post-operative Instructions Dear Patient and Family/Friends, Before you are discharged from the hospital, it is important to know what to expect when you get home after surgery. To that end, we have created this sheet of discharge instructions which covers many commonly asked questions. Make sure you go through this sheet in its entirety with your nurse before you are discharged. Please note that we will go over the specifics of your surgery and recovery when you return for your first post-operative visit. Sincerely, Dr. Siu Pain Expect to be in a fair amount of pain after surgery. Remember, our goal is not to eliminate your pain, but to make it tolerable. It is a good idea to stay ahead of your pain by taking the medications you were prescribed once you get home. Typically, the pain starts improving 3-7 days after surgery. You should start weaning off the narcotic pain medication (oxycodone, hydrocodone, hydromorphone, morphine) as soon as your pain improves. Please call our office if your pain is not adequately controlled. Ice Ice your operative site at least 5 times a day for 15-30 minutes at a time. Make sure you have a thin cloth between the ice or cooling unit and your skin to prevent hill bite. This is especially important if you received a nerve block. Continue icing your operative site for the first 5-7 days after surgery, then as needed. Diet/Nausea/Vomiting Start by drinking clear liquids and eating crackers. If you can tolerate this, then you may resume your normal diet. If you feel nauseated or vomit, take Zofr an/ondansetron (if prescribed). Please call our office if you have intractable nausea or vomiting, or, if after hours, you may go to the Emergency Room for help. Constipation Constipation is a common side effect of narcotic pain medication. If you have not had a bowel movement within 2 days after surgery, we recommend purchasing an over the counter laxative such as Milk of Magnesia, Dulcolax, or Miralax from a local pharmacy, and taking it as instructed. Call our clinic if any questions. Weight bearing and Range of Motion. Do not bear any weight through your operative extremity immediately after surgery. If you had upper extremity surgery, do not lift anything with that arm. If you are in a knee brace, keep it locked in place until your follow-up. We will discuss your weight bearing, range of motion, and lifting restrictions in detail at your first post-operative appointment. Continuous Passive Motion (CPM) Machine If you were prescribed a CPM machine, it will start after your first post- operative appointment, at which time we will give you instructions on the range of motion settings and duration of treatment Physical therapy You will be given a prescription for physical therapy or occupational therapy at your first post-operative appointment. Typically, patients start therapy within 1 week of surgery Wound care and showering We will inspect your wound at your first post-operative visit, and may do a dressing change at that time. Most patients will be in a water-proof dressing that is removed 14 days after surgery. It is normal to see some dried blood on the dressing. Do not remove your dressing, paper strips or sutures yourself unless you are given permission. Showering is allowed the day after surgery. Do not scrub or remove any dressings. The wound should not be submerged underwater (i.e. in a bathtub or pool) until 4 weeks after surgery RITA stockings If you were given white stockings, these are to be worn at all times except to shower (on both legs) for the first 2 weeks after surgery. Driving You may not drive while taking narcotic pain medication or while in a cast, splint, sling or brace. You, the patient, need to make the final determination about when you are safe to drive, however, the earliest you may consider driving after surgery is below: Hand/Wrist/Elbow Surgery: 3 days Shoulder Surgery: 2 weeks Hip,/Knee/Ankle Surgery: 4 weeks Fracture repair: 6 weeks Return to Work Your return to work depends on what surgery was done and what type of work you do. Please bring any paperwork your employer needs completed to your first post-operative visit. Also, bring a description of your job duties, as this helps us to understand what risks you may face at work. Travel Avoid long distance travel (greater than 1 hour) in airplanes and cars for the first 6 weeks after surgery. If you must travel, you need to have a Doppler ultrasound done before you travel to rule out a blood clot in your legs. Follow-up You have a follow up appt scheduled with Barb Tamayo PA-C on 08/31/22 @ 2:45 PM. When to call the office It is normal to have swelling and bruising in the limb that was operated on. This will improve with time. It is also normal to have fevers for the first 2 days after surgery. Reasons you should call your doctor include: Uncontrolled pain; Nausea, vomiting, or constipation that does not improve with medication; Fevers over 101.5, chills, sweats; Drainage or bleeding from the wound; Foul odor; Spreading areas of redness; Any other concerns Pending Studies at Discharge: No Stand-Alone Forms: My [facility] [place], Smoking Cessation Skilled Items Patient informed of condition?: Yes DNR: Yes Discharge Level of Care: Skilled Communicable Disease: No Discharge Prognosis: Stable Lines: None Urinary Catheter: Yes Medications and DC Order Prescriptions: Continued amlodipine 5 mg tablet 5 mg PO QAM acetaminophen [Tylenol Extra Strength] 500 mg Tablet 1,000 mg PO DIRECTED PRN (Reason: Pain) levothyroxine 25 mcg tablet 25 mcg PO QAM Tradjenta 5 mg tablet 5 mg PO QAM Discharge Orders: Discharge Order (Routine); Ordered 08/20/22 Ordered By: Deidre Martínez Admission Data Admit Date/Time: 08/11/22 20:04 Attending Provider: Deidre Martínez Admit Provider: Black Rodríguez Primary Care Provider: PCP,NO Other Providers: Grey Siu ; Black Rodríguez ; Ceasar Stout Other Interventions: Discharge Summary Assessment (RN) Last Done: 08/20/22 10:33 Coding Level of Care Code D/C DAY MANAGEMENT >30 MINS Diagnoses Femur fracture, left S72.92XA COVID-19 U07.1 Pulmonary congestion R09.89 Appetite loss R63.0 Diabetes E11.9 Hypertension I10 Hypothyroidism E03.9 Poor appetite R63.0 Time Spent (min) 35
[2022-08-20] MEDS: MoRPHine SULFATE IR 15 MG TAB (IMMEDIATE RELEASE) PO PRN (14:40)
== END 2022-08-20 16:49 | DRG 564 ==
LOC: ED 17:27 → SUATTDRO 20:04 → 2N 20:04